=== PATIENT | female | born 1975 | race Two or more races ===

== ENCOUNTER 2020-02-11 10:28 | Outpatient (REF) | payer OTHER, BC, SELFPAY | END 2020-02-11 10:29 | disposition home or self-care (01) | LOC: HO.LAB 10:28 | PROVIDERS: PCP Internal Medicine; Visit Provider Internal Medicine | DX: Z20.828 Contact with and (suspected) exposure to other viral communicable diseases (principal) | CPT/HCPCS: C9803; U0003 ==

== ENCOUNTER 2020-05-19 10:13 | Outpatient (REF) | payer OTHER, SELFPAY | END 2020-05-19 10:14 | disposition home or self-care (01) | LOC: HO.LAB 10:13 | PROVIDERS: Visit Provider Internal Medicine | DX: Z20.822 Contact with and (suspected) exposure to COVID-19 (principal) | CPT/HCPCS: 36415; C9803; U0003; U0005 ==

== ENCOUNTER 2020-06-28 09:24 | Outpatient (REF) | payer OTHER, SELFPAY ==
[2020-06-28 10:03] LABS: COVID-19 Test Negative (Negative); IDNOW Serial# 55D5AD1C
== END 2020-06-28 09:25 | disposition home or self-care (01) ==
LOC: HO.LAB 09:24
PROVIDERS: Visit Provider Internal Medicine
DX: Z20.822 Contact with and (suspected) exposure to COVID-19 (principal)
CPT/HCPCS: 36415; 87635; C9803

== ENCOUNTER 2020-07-01 11:48 | Outpatient (REF) | payer OTHER, SELFPAY ==
[2020-07-01 14:14] LABS: MANUAL DIFF FLAG NO
[2020-07-01 14:25] LABS: Basophils Percent Auto 0.3 % (0-2); Eosinophils Absolute Auto 0.3 X10*3/uL (0.0-0.4); Eosinophils Percent Auto 2.6 % (0-4); Hematocrit 37.2 % (37-47); Hemoglobin 11.8 g/dl (12.0-16.0); Imm Gran Abs Auto 0.03 X10*3/uL (0.00-0.03); Imm Gran Pct Auto 0.3 % (0.0-0.4); Lymphocytes Absolute Auto 2.6 X10*3/uL (1.2-4.9); Lymphocytes Percent Auto 26.4 % (20-40); Mean Corpuscular HGB Conc 31.7 g/dl (31.0-35.0); Mean Corpuscular Hemoglobin 28.4 pg (27.0-33.0); Mean Corpuscular Volume 89.4 fL (80-98); Mean Platelet Volume 11.3 fL (9.4-12.3); Monocytes Absolute Auto 0.5 X10*3/uL (0.1-1.2); Monocytes Percent Auto 4.6 % (2-11); Neutrophils Absolute Auto 6.5 X10*3/uL (2.0-8.3); Neutrophils Percent Auto 65.8 % (45-73); Platelet Count 279 X10*3/uL (160-400); Red Blood Count 4.16 X10*6/uL (4.20-5.50); Red Cell Distribution Width 12.9 % (11.0-16.0); White Blood Count 9.8 X10*3/uL (4.8-10.8)
[2020-07-01 14:42] LABS: Alanine Aminotransferase 9 U/L (0-31); Albumin Level 3.9 g/dL (3.5-5.0); Alkaline Phosphatase 68 U/L (39-117); Anion Gap 14 (12-20); Aspartate Amino Transferase 12 U/L (5-31); Bilirubin Total 0.4 mg/dL (0.0-1.0); Blood Urea Nitrogen 9 mg/dL (9-16); Calcium 9.3 mg/dL (8.4-10.2); Carbon Dioxide 24 mmol/L (22-29); Chloride 106 mmol/L (96-108); Estimated Glomerular Filt Rate > 60; Glucose Random 97 mg/dL (60-115); Potassium 4.4 mmol/L (3.3-5.1); Sodium 140 mmol/L (135-145); Total Protein 7.1 g/dL (6.5-8.0)
[2020-07-01 14:54] LABS: Thyroid Stimulating Hormone 1.51 uIU/mL (0.32-4.0)
[2020-07-01 15:04] LABS: Vitamin B12 380 pg/mL (200-900)
== END 2020-07-01 11:49 | disposition home or self-care (01) ==
LOC: HO.10HDL 11:48
PROVIDERS: Visit Provider Internal Medicine
DX: J45.909 Unspecified asthma, uncomplicated (principal); Z83.3 Family history of diabetes mellitus; M79.18 Myalgia, other site
CPT/HCPCS: 36415; 80053; 82607; 84443; 85025

== ENCOUNTER 2020-08-23 15:41 | Outpatient (REF) | payer OTHER, SELFPAY ==
--- NOTE | ~2020-08-23 | XR_ITS ---
EXAMINATION: XR ANKLE, RIGHT CLINICAL INFORMATION: Right ankle pain COMPARISON: None TECHNIQUE: AP, lateral, and mortise views of the right ankle. FINDINGS: Large heel spur and a large posterior calcaneal enthesophyte at the Achilles tendon insertion. The ankle mortise is preserved. No fracture. XR/XR ankle RT min 3V IMPRESSION: Large posterior calcaneal enthesophyte and heel spur.
== END 2020-08-23 15:42 | disposition home or self-care (01) ==
LOC: HO.XRAY 15:41
PROVIDERS: PCP Internal Medicine; Visit Provider Internal Medicine
DX: S99.911A Unspecified injury of right ankle, initial encounter (principal)
CPT/HCPCS: 73610

== ENCOUNTER 2020-09-15 00:27 | Emergency (ER) | payer OTHER, MEDICAID, SELFPAY ==
[2020-09-15 01:03] VITALS: BP 114/75; PULSE 74; RESP 18; TEMP 36.4; O2SAT 97; BMI 41.1
--- NOTE | 2020-09-15 04:30 | ED.SKABFB ---
HPI - Skin/Abscess/Foreign Bdy General Chief complaint: Skin/Abscess/Foreign Body Stated complaint: Facial pain Time Seen by Provider: 09/15/20 01:42 Source: patient Mode of arrival: ambulatory History of Present Illness HPI narrative: 44-year-old female with 5 days of worsening left nare abscess that is extremely painful to the patient, however she denies any visual disturbance, fevers, chills and states that she has had this before several years ago. Related Data Previous Rx's Medication Instructions Recorded etonogestrel 0.12 mg-ethinyl 1 vag ring VAGINAL ONCE 21 Days #1 09/01/20 estradiol 0.015 mg/24 hr vaginal ring ring Allergies Allergy/AdvReac Type Severity Reaction Status Date / Time Penicillins Allergy Intermediate SWELLING Unverified 11/13/19 15:56 penicillin V Allergy Unknown Unverified 10/27/19 00:00 Review of Systems Review of Systems: Pertinent positives and negatives as stated in HPI 10 point review of systems is otherwise negative. PMFSH Past Medical History Source: nursing notes reviewed Social History Social History Advance Directives: No Advance Directives Information Provided: No Patient : No Physical Exam Vital Signs: Vital Signs: Last Vital Signs Temp 97.6 F 09/15/20 01:03 Pulse 74 09/15/20 01:03 Resp 18 09/15/20 01:03 BP 114/75 09/15/20 01:03 Pulse Ox 97 09/15/20 01:03 Body Mass Index 41.1 VITAL SIGNS: Reviewed. GENERAL: Well developed, well nourished, in no acute distress. HEAD: Normocephalic/atraumatic EYES: PERRLA, EOMI EARS: Ext canals without abnormality, TMs non-bulging and non-erythematous NOSE: Nares patent bilateral, noted abscess to left nare OROPHARYNX: no oral lesions noted, posterior pharynx clear LUNGS: Normal breath sounds. No adventitious sounds or accessory muscle use. SpO2<97> CARDIOVASCULAR: Regular rate and rhythm without noted murmurs ABDOMEN: Soft, non-tender, non-distended with bowel sounds. SKIN: Inspection of the skin reveals no rashes NEUROLOGIC: Alert and oriented x 4. Strength and sensation to light touch were grossly intact x 4. Course Course Course Narrative: 44-year-old female with noted left nare abscess that was successfully drained and will be discharged with instructions to continue with warm moist compresses and follow up with their primary care provider. Procedures Abscess I/D Site: face (Left nare) Side (if applicable): left Sedation/analgesia: none Technique: needle aspiration Amount of fluid expressed (mL): 1 Sent for culture/gram staining?: No Irrigation: No Packing used?: none Complications: pain Discharge Plan Discharge Clinical Impression: Abscess Patient Disposition: Home, Self-Care Instructions: Abscess Incision and Drainage (DC) Additional Instructions: 1. Continue with warm moist intranasal compresses as we discussed, also apply to the outside of your nose as well and apply pressure to encourage continued drainage from your nose. Is not felt that she require antibiotics at this time. 2. Please follow-up with your primary care provider for re-evaluation. Return to the ER for any acute worsening of your symptoms. Prescriptions: No Action etonogestrel-ethinyl estradiol 0.12-0.015 mg/24 hr ring 1 vag ring vaginal ONCE 21 Days Qty: 1 RF: 0 Referrals: Arturo De La Rosa MD [Primary Care Provider] - 2 days (Re-evaluation after left nare abscess)
== END 2020-09-15 04:44 | disposition home or self-care (01) ==
PROVIDERS: Emergency Provider Student in an Organized Health Care Education/Training Program; PCP Internal Medicine
DX: J34.0 Abscess, furuncle and carbuncle of nose (principal)
CPT/HCPCS: 10160; 99282; 99284

== ENCOUNTER 2020-11-30 11:25 | Outpatient (REF) | payer OTHER, MEDICAID, SELFPAY ==
--- NOTE | ~2020-11-30 | MM_ITS ---
EXAMINATION: MM SCREENING DIGITAL BREAST TOMOSYNTHESIS, BILATERAL CLINICAL INFORMATION: Screening. Asymptomatic. The lifetime risk of breast cancer based on the Tyrer-Cuzick Model is 9%. COMPARISON: Mammography: 09/25/2019, 07/07/2016, 06/30/2016 TECHNIQUE: Digital breast tomosynthesis is performed in both the craniocaudal and mediolateral oblique views along with computer-aided detection (CAD). Synthesized 2D images are generated from the tomosynthesis. Additional right CC view is provided. FINDINGS: The breasts are almost entirely fatty (ACR BI-RADS breast composition Category a). Background stromal markings are unremarkable. There are no significant masses, abnormal calcifications, or other abnormalities. Skin contours are smooth. No significant changes. MM/MM tomosynthesis screening BI IMPRESSION: No mammographic evidence of malignancy. ASSESSMENT: BI-RADS 1: Negative RECOMMENDATION: Routine annual mammography screening. This patient's information was entered into a reminder system with a target due date for their next mammogram.
[2020-11-30 10:28] LABS: Hematocrit 37.2 % (37-47); Hemoglobin 12.2 g/dl (12.0-16.0); Mean Corpuscular HGB Conc 32.8 g/dl (31.0-35.0); Mean Corpuscular Hemoglobin 28.6 pg (27.0-33.0); Mean Corpuscular Volume 87.3 fL (80-98); Platelet Count 268 X10*3/uL (160-400); Red Blood Count 4.26 X10*6/uL (4.20-5.50); Red Cell Distribution Width 13.2 % (11.0-16.0); White Blood Count 11.5 X10*3/uL (4.8-10.8)
[2020-11-30 11:13] LABS: HCG Quantitative < 2 mIU/mL; TSH reflex Free T4 3.65 uIU/mL (0.32-4.0)
[2020-11-30 11:20] LABS: HBsAGNum1 0.13 S/CO (0.00-0.99); HIV AB/AG Nonreactive (Nonreactive); HIV Num 1 0.08 S/CO (0.00-0.99); Hepatitis B Surface Antigen Negative (Negative); ~HepC Num1 0.07 S/CO (0.00-0.79); ~Hepatitis C Antibody Nonreactive (Nonreactive)
[2020-12-01 08:05] LABS: Syphilis Screen Nonreactive (Nonreactive)
== END 2020-11-30 11:26 | disposition home or self-care (01) ==
LOC: HO.MAMMO 11:25
PROVIDERS: PCP Internal Medicine; Visit Provider Obstetrics & Gynecology
DX: Z01.411 Encounter for gynecological examination (general) (routine) with abnormal findings (principal); Z12.31 Encounter for screening mammogram for malignant neoplasm of breast; Z11.3 Encounter for screening for infections with a predominantly sexual mode of transmission; N93.9 Abnormal uterine and vaginal bleeding, unspecified; Z87.42 Personal history of other diseases of the female genital tract
CPT/HCPCS: 36415; 77063; 77067; 84443; 84702; 85027; 86780; 86803; 87340; 87389

== ENCOUNTER 2020-11-30 11:36 | Outpatient (REF) | payer OTHER, SELFPAY ==
[2020-12-01 09:22] LABS: CT PCR NOT DETECTED (Not Detect.); NG PCR NOT DETECTED (Not Detect.)
[2020-12-01 09:54] LABS: BV Int Neg Control Negative (Negative); BV Int Pos Control Positive (Positive)
[2020-12-04 10:57] LABS: HPV 16 RNA NOT DETECTED (NOT DETECTED); HPV mRNA E6/E7 rflx Detected (Not Detected)
== END 2020-11-30 11:37 | disposition home or self-care (01) ==
LOC: HO.LAB 11:36
PROVIDERS: Visit Provider Obstetrics & Gynecology
DX: N93.9 Abnormal uterine and vaginal bleeding, unspecified (principal); Z11.3 Encounter for screening for infections with a predominantly sexual mode of transmission; Z11.51 Encounter for screening for human papillomavirus (HPV)
CPT/HCPCS: 87480; 87491; 87510; 87591; 87624; 87625; 87660; 88142

== ENCOUNTER 2020-12-28 11:08 | Outpatient (REF) | payer OTHER, SELFPAY ==
--- NOTE | ~2020-12-28 | US_ITS ---
EXAMINATION: US PELVIS CLINICAL INFORMATION: Abnormal uterine and vaginal bleeding. Last menstrual period 1 year ago. COMPARISON: No similar priors. TECHNIQUE: Ultrasound of the pelvis is performed using both transabdominal and transvaginal transducers along with Doppler. Transvaginal imaging is performed due to inadequate visualization transabdominally. FINDINGS: Uterus: The uterus is anteverted and measures 8.7 x 4.2 x 4.0 cm. The endometrium measures 0.4 cm in thickness without focal abnormalities. The uterus is smooth in contour and has normal myometrial echogenicity. No visible fibroid. Adnexa: The right ovary is only visualized transabdominally. There is normal color flow to the adnexa. There is no pelvic ascites or fluid collection. Right ovary measures 2.7 x 1.7 x 2.2 cm. Volume of 5 mL. Left ovary measures 2.6 x 1.4 x 1.7 cm. Volume of 3 mL. US/US pelvic and transvaginal IMPRESSION: Mildly limited examination due poor acoustic windows from bowel gas and body habitus. The right ovary was only visualized transabdominally. Accounting for these limitations, there are no acute sonographic abnormalities to explain the patient's symptoms. In a postmenopausal patient with vaginal bleeding, the endometrium should not measure more than 5 mm. The endometrium is this patient measures 4 mm. If clinical concern for endometrial hyperplasia/neoplasia, consider further evaluation with direct examination and gynecologic consultation.
== END 2020-12-28 11:09 | disposition home or self-care (01) ==
LOC: HO.US 11:08
PROVIDERS: Visit Provider Obstetrics & Gynecology
DX: N93.9 Abnormal uterine and vaginal bleeding, unspecified (principal)
CPT/HCPCS: 76830; 76856

== ENCOUNTER 2021-01-11 11:00 | Outpatient (REF) | payer OTHER, MEDICAID, SELFPAY | END 2021-01-11 11:01 | disposition home or self-care (01) | LOC: HO.LAB 11:00 | PROVIDERS: Visit Provider Obstetrics & Gynecology | DX: N93.9 Abnormal uterine and vaginal bleeding, unspecified (principal); R87.612 Low grade squamous intraepithelial lesion on cytologic smear of cervix (LGSIL) | CPT/HCPCS: 58110; 57454; 58100; 88305 ==

== ENCOUNTER → 2021-01-31 08:25 | Outpatient (BNVA) | payer OTHER, SELFPAY | PROVIDERS: PCP Internal Medicine; Visit Provider Obstetrics & Gynecology ==

== ENCOUNTER 2021-02-25 10:12 | Outpatient (REF) | payer OTHER, SELFPAY ==
[2021-02-25 11:20] LABS: Binax Internal Control QC Valid; Binax Lot number: 9864; Binax Now Covid-19 Ag Negative (Negative)
== END 2021-02-25 10:13 | disposition home or self-care (01) ==
LOC: HO.LAB 10:12
PROVIDERS: Visit Provider Internal Medicine
DX: Z20.822 Contact with and (suspected) exposure to COVID-19 (principal)
CPT/HCPCS: 36415; C9803

== ENCOUNTER → 2021-03-30 10:30 | Outpatient (BNVA) | payer OTHER, SELFPAY | PROVIDERS: Visit Provider Obstetrics & Gynecology ==

== ENCOUNTER 2021-04-01 09:38 | Day surgery (SDC) | payer OTHER, SELFPAY ==
[2021-02-22 14:00] VITALS: BMI 44.0
--- NOTE | 2021-03-03 12:12 | HO.ANESPROP2 ---
HPI - Anesthesia Eval Consult details Narrative: 45yo F for [facility] LEEP PMFSH Active Problems Active Problems: All Active Problems (Updated 02/22/21 @ 14:03 by Eliana Chavira, RN) Well woman exam (Acute) Abnormal uterine bleeding (AUB) (Acute) Screening for STD (sexually transmitted disease) (Acute) Contraceptive management (Acute) LGSIL on Pap smear of cervix (Acute) Dysplasia of cervix, low grade (MULU 1) (Acute) Past Medical History Medical History (Updated 02/22/21 @ 14:03 by Eliana Chavira, RITA) COVID-19 vaccine series completed Dysplasia of cervix, low grade (MULU 1) Family History Family History Maternal Grandmother Uterine cancer Surgical History Surgical History (Updated 02/22/21 @ 13:59 by Eliana Chavira RN) Hx of cholecystectomy Social History Social History Patient Tobacco Use Status: Never used Tobacco Meds Allergies Allergy/AdvReac Type Severity Reaction Status Date / Time Penicillins Allergy Intermediate SWELLING Verified 02/22/21 13:49 Exam Exam Date and Time: March 03, 2021 1212 Height,Weight and Vital Signs: Height 5 ft 5 in Weight 120 kg Assessment and Plan Assessment Anesthesia Assessment: Chart Reviewed
--- NOTE | 2021-03-31 10:18 | HO.ANESPROP2 ---
Documented by User: Cynthia Grossman NP 03/31/21 10:19 HPI - Anesthesia Eval Consult details Narrative: 45yo F for [facility] LEEP PMFSH Active Problems Active Problems: All Active Problems (Updated 02/22/21 @ 14:03 by Eliana Chavira, RITA) Well woman exam (Acute) Abnormal uterine bleeding (AUB) (Acute) Screening for STD (sexually transmitted disease) (Acute) Contraceptive management (Acute) LGSIL on Pap smear of cervix (Acute) Dysplasia of cervix, low grade (MULU 1) (Acute) Past Medical History Medical History COVID-19 vaccine series completed Dysplasia of cervix, low grade (MULU 1) Family History Family History Maternal Grandmother Uterine cancer Surgical History Surgical History Hx of cholecystectomy Social History Social History Patient Tobacco Use Status: Never used Tobacco Use of substances other than those prescribed or required for medical reasons: No Are you DNR?: No Advance Directives: No Advance Directives Information Provided: Yes (informational brochure mailed) Advance Directives on File: No Recently lost weight without trying: No Eating poorly because of decreased appetite: No Nutrition Risks: No Nutritional Risk Patient : No FDLMP: N/A Meds Allergies Allergy/AdvReac Type Severity Reaction Status Date / Time Penicillins Allergy Intermediate SWELLING Verified 03/25/21 15:10 Exam Exam Date and Time: March 31, 2021 1018 Height,Weight and Vital Signs: Height 5 ft 5 in Weight 120 kg Pertinent Lab Results Pertinent Lab Results: Laboratory Tests 07/01/20 11/30/20 11:55 09:48 WBC 11.5 H Hgb 12.2 Hct 37.2 Plt Count 268 Sodium 140 Potassium 4.4 Chloride 106 Carbon Dioxide 24 BUN 9 Creatinine 0.72 Assessment and Plan Assessment Anesthesia Assessment: Chart Reviewed Documented by User: Fortunato Chakraborty MD 04/01/21 10:02 PMF Past Medical History Medical History COVID-19 vaccine series completed Dysplasia of cervix, low grade (MULU 1) Family History Family History Maternal Grandmother Uterine cancer Family history of problems with anesthesia: No Surgical History Surgical History Hx of cholecystectomy History of Problems with Anesthesia: No Social History Social History Patient Tobacco Use Status: Never used Tobacco Use of substances other than those prescribed or required for medical reasons: No Are you DNR?: No Advance Directives: No Advance Directives Information Provided: Yes (informational brochure mailed) Advance Directives on File: No Recently lost weight without trying: No Eating poorly because of decreased appetite: No Nutrition Risks: No Nutritional Risk Patient : No FDLMP: N/A Meds Allergies Allergy/AdvReac Type Severity Reaction Status Date / Time Penicillins Allergy Intermediate SWELLING Verified 03/25/21 15:10 Exam Airway Mallampati Class: II TM Dist: >3cm Neck ROM: Full Assessment and Plan Assessment Anesthesia Assessment: Anesthesia Plan Discussed Final Anesthetic Review Family History of Problems with Anesthesia: No History of Problems with Anesthesia: No NPO: Yes ASA Class: II Final Preanesthetic Review: No Changes in Pt Med Stat, Meds/Allgs Chart Reviewed, Consent Obtained/Reviewed and Anes Risks/Benef Reviewed Patient Risk: Intermediate Procedure Risk: Low Anesthetic Plan Anesthetic Plan: GA Disposition: Standard PACU
[2021-04-01] VITALS (7 sets, daily range): BP systolic 110–149; BP diastolic 67–97; PULSE 63–91; RESP 16–20; TEMP 36.2–36.4; O2SAT 94–99
[2021-04-01 10:07] LABS: UPreg QC Valid YES; Urine Pregnancy NEGATIVE (NEGATIVE)
--- NOTE | 2021-04-01 10:16 | MHC.SHP ---
Pre-Procedural Eval Section A Date of Service: 04/01/21 The patient is an INPATIENT: No Changes since office visit: No Cold of Flu in the past 2 weeks, No New Medical Problems, No Changes in Medication and No Patient answered all questions The History & Physical has been completed within 30 days and I have reviewed it.: Yes Section B Chief Complaint: cervical dyslasia Allergies: Allergies Allergy/AdvReac Type Severity Reaction Status Date / Time Penicillins Allergy Intermediate SWELLING Verified 03/25/21 15:10 Plan Diagnosis/Plan: Unchanged I have reviewed the history and physical and performed a pertinent physical examination on my patient. No changes have occurred unless specified.
[2021-04-01] MEDS: Lactated Ringers 1,000 ML 100 ML IVCONT (10:18)
--- NOTE | 2021-04-01 11:50 | PM.OP ---
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
--- NOTE | 2021-04-01 11:51 | W.PM.OPN ---
Operative Note Operative Note Date of Service: 04/01/21 Narrative: Preop diagnosis: Persistent MULU 1 with negative ECC Operation: LEEP Post op diagnosis: same Anesthesia: paracervical block with MAC Complications: none Pathology: Anterior and Posterior cervical lip QBL: minimal Procedure: The patient was put in the dorsal lithotomy position, was prepped and draped in the usual sterile fashion. A sterile speculum was inserted inside the patient vagina. Using Lugol solution the cervix with Dyed with Lugol solution to identifiy the abnormal demarcating line. 10 cc of Marcaine0.5% with epinephrine were given at 2,4 , 8, and 10 o'clock. Using a medium-size loop wire, the anterior cervical lip was excised followed by the posterior cervical lip and endocervix Hemostasis was assured using cautery and Monsel solution. All instruments were taken out of the patient's vaginal cavity. the patient tolerated the procedure well and was discharged home with the following instructions: call if temperature is above 100.4, vaginal bleeding, abdominal pain or nausea or vomiting. Follow-up in the office in 2 weeks for postop visit
== END 2021-04-01 13:00 ==
LOC: HO.SSS 09:38
PROVIDERS: Nurse Practitioner; Visit Provider Obstetrics & Gynecology
PROC: 0UBC7ZZ Excision of Cervix, Via Natural or Artificial Opening (ICD-10-PCS; CPT 57522; principal; 2021-04-01 11:20)
DX: N87.0 Mild cervical dysplasia (principal); Z90.49 Acquired absence of other specified parts of digestive tract; Z88.8 Allergy status to other drugs, medicaments and biological substances
CPT/HCPCS: 57522; 81025; 88307; J1100; J2250; J2405; J3010

== ENCOUNTER → 2021-05-03 11:47 | Outpatient (BNVA) | payer OTHER, SELFPAY | PROVIDERS: Visit Provider Obstetrics & Gynecology ==

== ENCOUNTER 2021-05-25 10:42 | Outpatient (REF) | payer OTHER, SELFPAY ==
[2021-05-25 11:27] LABS: Influenza A PCR NEGATIVE (Negative); Influenza B PCR NEGATIVE (Negative); Resp Syncy Virus RNA Qual PCR NEGATIVE (Negative); SARS COV2 PCR INHOUSE NEGATIVE (Negative)
== END 2021-05-25 10:43 | disposition home or self-care (01) ==
LOC: HO.LNP 10:42
PROVIDERS: Visit Provider Internal Medicine
DX: Z20.822 Contact with and (suspected) exposure to COVID-19 (principal); R05.9 Cough, unspecified
CPT/HCPCS: 0241U

== ENCOUNTER 2021-09-21 14:48 | Outpatient (REF) | payer OTHER, SELFPAY ==
[2021-09-21 16:18] LABS: COVID-19 Test Negative (Negative)
== END 2021-09-21 14:49 | disposition home or self-care (01) ==
LOC: HO.LAB 14:48
PROVIDERS: Visit Provider Internal Medicine
DX: Z20.822 Contact with and (suspected) exposure to COVID-19 (principal)
CPT/HCPCS: 87635; C9803

== ENCOUNTER 2021-09-26 14:10 | Outpatient (REF) | payer OTHER, SELFPAY ==
[2021-09-26 14:58] LABS: COVID-19 Test Negative (Negative); IDNOW Serial# 16C4AD1C
== END 2021-09-26 14:11 | disposition home or self-care (01) ==
LOC: HO.LAB 14:10
PROVIDERS: Visit Provider Internal Medicine
DX: Z20.822 Contact with and (suspected) exposure to COVID-19 (principal)
CPT/HCPCS: 87635; C9803

== ENCOUNTER 2021-11-25 13:27 | Outpatient (REF) | payer OTHER, SELFPAY ==
[2021-11-25 13:52] LABS: MANUAL DIFF FLAG NO
[2021-11-25 14:37] LABS: Basophils Percent Auto 0.3 % (0-2); Eosinophils Absolute Auto 0.2 X10*3/uL (0.0-0.4); Eosinophils Percent Auto 1.3 % (0-4); Hematocrit 38.9 % (37.0-47.0); Hemoglobin 12.5 g/dl (12.0-16.0); Imm Gran Abs Auto 0.06 X10*3/uL (0.00-0.03); Imm Gran Pct Auto 0.5 % (0.0-0.4); Lymphocytes Absolute Auto 2.6 X10*3/uL (1.2-4.9); Lymphocytes Percent Auto 21.4 % (20-40); Mean Corpuscular HGB Conc 32.1 g/dl (31.0-35.0); Mean Corpuscular Hemoglobin 28.5 pg (27.0-33.0); Mean Corpuscular Volume 88.6 fL (80.0-98.0); Mean Platelet Volume 11.1 fL (9.4-12.3); Monocytes Absolute Auto 0.6 X10*3/uL (0.1-1.2); Monocytes Percent Auto 4.6 % (2-11); Neutrophils Absolute Auto 8.6 x10*3/uL (2.0-8.3); Neutrophils Percent Auto 71.9 % (45-73); Platelet Count 297 X10*3/uL (160-400); Red Blood Count 4.39 X10*6/uL (4.20-5.50); Red Cell Distribution Width 13.3 % (11.0-16.0); White Blood Count 11.9 X10*3/uL (4.8-10.8)
[2021-11-25 14:46] LABS: Estimated Average Glucose 114 mg/dL; Hemoglobin A1c % 5.6 %
[2021-11-25 15:09] LABS: Alanine Aminotransferase 11 U/L (0-31); Albumin Level 4.1 g/dL (3.5-5.0); Alkaline Phosphatase 75 U/L (39-117); Anion Gap 14 (12-20); Aspartate Amino Transferase 15 U/L (5-31); Bilirubin Total 0.3 mg/dL (0.0-1.0); Blood Urea Nitrogen 9 mg/dL (9-16); Calcium 9.2 mg/dL (8.4-10.2); Carbon Dioxide 22 mmol/L (22-29); Chloride 107 mmol/L (96-108); Cholesterol 183 mg/dL; Estimated Glomerular Filt Rate > 60; Glucose Fasting 98 mg/dL (60-99); HDL Cholesterol 58 mg/dL; LDL Cholesterol Calculated 106 mg/dl; Potassium 4.5 mmol/L (3.3-5.1); Sodium 138 mmol/L (135-145); Total Protein 7.5 g/dL (6.5-8.0); Triglycerides 97 mg/dL
[2021-11-25 15:30] LABS: Free T4 (Free Thyroxine) 1.11 ng/dL (0.71-1.85); Thyroid Stimulating Hormone 1.51 uIU/mL (0.32-4.0)
== END 2021-11-25 13:28 | disposition home or self-care (01) ==
LOC: HO.LAB 13:27
PROVIDERS: PCP Internal Medicine; Visit Provider Internal Medicine
DX: Z00.00 Encounter for general adult medical examination without abnormal findings (principal)
CPT/HCPCS: 36415; 80053; 80061; 83036; 84439; 84443; 85025

== ENCOUNTER 2021-12-01 12:56 | Outpatient (REF) | payer OTHER, SELFPAY ==
--- NOTE | ~2021-12-01 | MM_ITS ---
EXAMINATION: MM SCREENING DIGITAL BREAST TOMOSYNTHESIS, BILATERAL CLINICAL INFORMATION: Screening. Asymptomatic. The lifetime risk of breast cancer based on the Tyrer-Cuzick Model is 9%. COMPARISON: Mammography: 11/30/2020, 09/25/2019, 07/07/2016 TECHNIQUE: Digital breast tomosynthesis is performed in both the craniocaudal and mediolateral oblique views along with computer-aided detection (CAD). Synthesized 2D images are generated from the tomosynthesis. FINDINGS: The breasts are almost entirely fatty (ACR BI-RADS breast composition Category a). There are no significant masses, abnormal calcifications, or other abnormalities. Background stromal markings are similar to prior studies. No developing density or architectural abnormality. No significant changes. MM/MM tomosynthesis screening BI IMPRESSION: No mammographic evidence of malignancy. ASSESSMENT: BI-RADS 1: Negative RECOMMENDATION: Routine annual mammography screening. This patient's information was entered into a reminder system with a target due date for their next mammogram.
== END 2021-12-01 12:57 | disposition home or self-care (01) ==
LOC: HO.MAMMO 12:56
PROVIDERS: Visit Provider Internal Medicine
DX: Z12.31 Encounter for screening mammogram for malignant neoplasm of breast (principal)
CPT/HCPCS: 77063; 77067

== ENCOUNTER 2021-12-07 10:13 | Outpatient (REF) | payer OTHER, SELFPAY ==
[2021-12-13 11:42] LABS: HPV mRNA E6/E7 rflx Not Detected (Not Detected)
== END 2021-12-07 10:14 | disposition home or self-care (01) ==
LOC: HO.LNP 10:13
PROVIDERS: Visit Provider Obstetrics & Gynecology
DX: Z01.419 Encounter for gynecological examination (general) (routine) without abnormal findings (principal); Z11.51 Encounter for screening for human papillomavirus (HPV)
CPT/HCPCS: 87624; 88142

== ENCOUNTER 2021-12-07 10:22 | Outpatient (REF) | payer OTHER, SELFPAY ==
[2021-12-07 11:57] LABS: Syphilis Screen Nonreactive (Nonreactive)
[2021-12-07 12:07] LABS: HBsAGNum1 0.19 S/CO (0.00-0.99); HIV AB/AG Nonreactive (Nonreactive); HIV Num 1 0.06 S/CO (0.00-0.99); Hepatitis B Surface Antigen Negative (Negative); ~HepC Num1 0.08 S/CO (0.00-0.79); ~Hepatitis C Antibody Nonreactive (Nonreactive)
[2021-12-07 19:08] LABS: CT PCR NOT DETECTED (Not Detect.); NG PCR NOT DETECTED (Not Detect.)
[2021-12-08 10:09] LABS: BV Int Neg Control Negative (Negative); BV Int Pos Control Positive (Positive)
== END 2021-12-07 10:23 | disposition home or self-care (01) ==
LOC: HO.LAB 10:22
PROVIDERS: PCP Internal Medicine; Visit Provider Obstetrics & Gynecology
DX: Z01.419 Encounter for gynecological examination (general) (routine) without abnormal findings (principal); Z11.4 Encounter for screening for human immunodeficiency virus [HIV]; Z11.3 Encounter for screening for infections with a predominantly sexual mode of transmission
CPT/HCPCS: 36415; 86780; 86803; 87340; 87389; 87480; 87491; 87510; 87591; 87660

== ENCOUNTER → 2022-07-04 07:45 | Outpatient (REF) | payer OTHER, SELFPAY ==
--- NOTE | 2022-07-04 07:49 | CA_ITS ---
Acquisition Time: 2022-07-04 08:01:37 Total Exercise Time: 00:05:01 Test Indications: CP Medications: SEE H Protocol: CLAUDE Max HR: 166 BPM 95% of Pred: 173 BPM Max BP: 148/082 mmHG Max Work Load: 7.0 METS PT EXERCISED ON STD CLAUDE PROTOCOL FOR 5 MIN INTO STAGE 2. MAX HR 166-95%MAX. NO EKG MCHANGES. LIMITING FACTOR WAS SOB. NO CP, NO ARRHYTHMIAS. DECONDITIONED. CLINICALLY AND ELEC NEG. Referred By: Arturo Granda Overread By: SCARLET GRANDA MD
[2022-07-04 09:05] LABS: MANUAL DIFF FLAG NO
[2022-07-04 09:28] LABS: Basophils Percent Auto 0.3 % (0-2); Eosinophils Absolute Auto 0.3 X10*3/uL (0.0-0.4); Eosinophils Percent Auto 2.4 % (0-4); Hematocrit 37.6 % (37.0-47.0); Imm Gran Abs Auto 0.05 X10*3/uL (0.00-0.03); Imm Gran Pct Auto 0.5 % (0.0-0.4); Lymphocytes Absolute Auto 3.6 X10*3/uL (1.2-4.9); Lymphocytes Percent Auto 32.1 % (20-40); Mean Corpuscular HGB Conc 31.9 g/dl (31.0-35.0); Mean Corpuscular Volume 87.6 fL (80.0-98.0); Mean Platelet Volume 10.6 fL (9.4-12.3); Monocytes Absolute Auto 0.6 X10*3/uL (0.1-1.2); Monocytes Percent Auto 5.5 % (2-11); Neutrophils Absolute Auto 6.6 x10*3/uL (2.0-8.3); Neutrophils Percent Auto 59.2 % (45-73); Platelet Count 313 X10*3/uL (160-400); Red Blood Count 4.29 X10*6/uL (4.20-5.50); Red Cell Distribution Width 13.2 % (11.0-16.0); White Blood Count 11.1 X10*3/uL (4.8-10.8)
[2022-07-04 09:34] LABS: D Dimer High Sensitivity 150 NG/ML
[2022-07-04 10:59] LABS: Estimated Average Glucose 120 mg/dL; Hemoglobin A1c % 5.8 %
[2022-07-04 11:51] LABS: Troponin-I High Sensitivity < 2.7 ng/L (<3.5-17.0)
[2022-07-04 12:37] LABS: Alanine Aminotransferase 9 U/L (0-31); Albumin Level 3.8 g/dL (3.5-5.0); Alkaline Phosphatase 70 U/L (39-117); Anion Gap 13 (12-20); Aspartate Amino Transferase 10 U/L (5-31); Bilirubin Total 0.2 mg/dL (0.0-1.0); Blood Urea Nitrogen 10 mg/dL (9-16); C Reactive Protein 4.16 mg/dL (< or = 0.50); Calcium 9.2 mg/dL (8.4-10.2); Carbon Dioxide 20 mmol/L (22-29); Chloride 113 mmol/L (96-108); Estimated Glomerular Filt Rate > 60; Glucose Random 109 mg/dL (60-115); Potassium 4.1 mmol/L (3.3-5.1); Sodium 142 mmol/L (135-145)
== END ==
LOC: HO.CARD 07:45
PROVIDERS: PCP Internal Medicine; Visit Provider Internal Medicine
DX: R07.9 Chest pain, unspecified (principal); R73.03 Prediabetes
CPT/HCPCS: 36415; 80053; 82550; 83036; 84443; 84484; 85025; 85379; 86140; 93017

== ENCOUNTER 2022-12-12 09:48 | Outpatient (AMB) | payer OTHER, SELFPAY ==
--- NOTE | 2022-12-12 09:51 | MHC.OFFVIS ---
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 No complaints. Last Pap/HPV was in 12/17 was negative, the patient had in 12/16 for persistent MULU 1 Last Mammogram was BI-RADS 1 in 12/17 No previous screening Colonoscopy [facility] Medical History COVID-19 vaccine series completed Dysplasia of cervix, low grade (MULU 1) Surgical History Hx of cholecystectomy Family History Maternal Grandmother Uterine cancer Social History Household Members: Spouse Housing: Apartment Alcohol intake: never Patient Tobacco Use Status: Never used Tobacco service: No Current occupational status: employed Current occupation: [employer] Sexual orientation: Straight/Heterosexual Gender identity: Female Female Reproductive History Menstrual Age of Menarche: 12 Duration of menses: <3 days Date of last menstrual period: 12/04/22 control method: vaginal ring Total pregnancies: 3 Full term: 2 Number of Living Children: 2 Ab spontaneous: 1 Date of last pap smear: 12/08/21 Date of Mammogram: 12/01/21 Review of Systems Const All systems reviewed & are unremarkable except as noted in HPI and below Card Reports as per HPI Resp Reports as per HPI GI Reports as per HPI and Reports no additional complaints Reports as per HPI Physical Exam Vital Signs: BMI result Body Mass Index 40.0 Const General: cooperative, healthy appearing and comfortable Chest Chest palpation & inspection: normal inspection of the chest and normal palpation of entire chest wall Breast/axilla inspection: normal inspection of the breasts and normal inspection of the axillae Breast/axilla palpation: normal palpation of the breasts, normal palpation of the axillae and no axillary lymphadenopathy Resp Effort & Inspection: normal respiratory effort Auscultation: clear to auscultation bilaterally Percussion: percussion normal Cardio Palpation: normal PMI Rate: regular rate Rhythm: regular rhythm Heart sounds: no murmurs and no rubs Peripheral pulses: Peripheral pulses 2+ throughout GI Inspection: Yes normal to inspection Palpation (GI): Soft to palpation, nontender, no guarding, not rigid and No hepatosplenomegaly present Percussion: Yes normal to percussion Auscultation: normal bowel sounds Rectal Exam - Female: deferred General: Yes bladder normal to palpation External Female Exam: No lesion Speculum Exam - Vagina: normal appearance of the vagina, normal palpation, normal vaginal discharge and not erythematous Speculum Exam - Cervix: normal appearance of the cervix and normal palpation Bimanual exam- vagina & uterus: normal bimanual exam, normal palpation, uterine size normal, bladder normal to palpation, consistency normal and normal palpation Bimanual Exam- Adnexa, other: normal adnexae, no masses and no tenderness Assessment & Plan Assessment & Plan (1) Well woman exam: Comment: MULU 1 since 2019 status post LEEP in 2021, co testing in 11/2021 negative Code(s): Z01.419 - Encounter for gynecological examination (general) (routine) without abnormal findings Plan: Cotesting in 2024 per ASCCP guidelines. Mammogram ordered. Counseled the patient about the recommended dietary allowance of 1000 mg of Calcium & 600 IU of vitamin D. The patient was instructed to perform monthly self-breast exams and to schedule an annual exam in a year; All questions answered and the patient verbalized understanding. Instructed the patient to schedule annual exam in a year Orders: Orders MM screening mammo BI Today Z12.31 - Encounter for screening mammogram for malignant neoplasm of breast Referrals Gastroenterology Referral Z12.11 - Encounter for screening for malignant neoplasm of colon Coding Level of Care Code Est Pt Prev Care 40-64y([id number]) Diagnoses Well woman exam Z01.419
[2022-12-12 09:54] VITALS: BP 126/74; BMI 40.0
== END 2022-12-12 10:11 | disposition home or self-care (01) ==
PROVIDERS: PCP Internal Medicine; Visit Provider Obstetrics & Gynecology
DX: Z01.419 Encounter for gynecological examination (general) (routine) without abnormal findings (principal)
CPT/HCPCS: 99396

== ENCOUNTER → 2022-12-12 09:48 | Outpatient (BNVA) | payer OTHER, SELFPAY | PROVIDERS: Visit Provider Obstetrics & Gynecology ==

== ENCOUNTER 2022-12-22 11:30 | Outpatient (REF) | payer OTHER, SELFPAY ==
--- NOTE | ~2022-12-22 | MM_ITS ---
EXAMINATION: MM SCREENING DIGITAL BREAST TOMOSYNTHESIS, BILATERAL CLINICAL INFORMATION: Screening. Asymptomatic. COMPARISON: Mammography: This study is compared with prior exams dating back to 2017. TECHNIQUE: Digital breast tomosynthesis is performed in both the craniocaudal and mediolateral oblique views along with computer-aided detection (CAD). Synthesized 2D images are generated from the tomosynthesis. FINDINGS: The breasts are almost entirely fatty (ACR BI-RADS breast composition Category a). There are no significant masses, abnormal calcifications, or other abnormalities. MM/MM tomosynthesis screening BI IMPRESSION: No mammographic evidence of malignancy. ASSESSMENT: BI-RADS BI-RADS 1 - Negative RECOMMENDATION: Routine annual mammography screening. 1 year F/U This examination should not preclude the clinical evaluation of a suspicious palpable abnormality. This patient's information was entered into a reminder system with a target due date for their next mammogram.
== END 2022-12-22 11:31 | disposition home or self-care (01) ==
LOC: HO.MAMMO 11:30
PROVIDERS: PCP Internal Medicine; Visit Provider Internal Medicine
DX: Z12.31 Encounter for screening mammogram for malignant neoplasm of breast (principal)
CPT/HCPCS: 77063; 77067

== ENCOUNTER → 2022-12-22 11:45 | Outpatient (BNV) | payer OTHER, SELFPAY | PROVIDERS: PCP Internal Medicine; Visit Provider Radiology Diagnostic Radiology | DX: Z12.31 Encounter for screening mammogram for malignant neoplasm of breast (principal) | CPT/HCPCS: 77063; 77067 ==

== ENCOUNTER 2023-03-22 11:01 | Outpatient (REF) | payer OTHER, SELFPAY ==
[2023-03-22 11:16] LABS: MANUAL DIFF FLAG NO
[2023-03-22 11:58] LABS: Basophils Percent Auto 0.3 % (0-2); Eosinophils Absolute Auto 0.3 X10*3/uL (0.0-0.4); Eosinophils Percent Auto 3.4 % (0-4); Hematocrit 36.7 % (37.0-47.0); Hemoglobin 11.9 g/dl (12.0-16.0); Imm Gran Abs Auto 0.04 X10*3/uL (0.00-0.03); Imm Gran Pct Auto 0.4 % (0.0-0.4); Lymphocytes Percent Auto 29.8 % (20-40); Mean Corpuscular HGB Conc 32.4 g/dl (31.0-35.0); Mean Corpuscular Hemoglobin 28.6 pg (27.0-33.0); Mean Corpuscular Volume 88.2 fL (80.0-98.0); Mean Platelet Volume 10.9 fL (9.4-12.3); Monocytes Absolute Auto 0.5 X10*3/uL (0.1-1.2); Monocytes Percent Auto 5.2 % (2-11); Neutrophils Absolute Auto 6.2 x10*3/uL (2.0-8.3); Neutrophils Percent Auto 60.9 % (45-73); Platelet Count 303 X10*3/uL (160-400); Red Blood Count 4.16 X10*6/uL (4.20-5.50); White Blood Count 10.1 X10*3/uL (4.8-10.8)
[2023-03-22 12:44] LABS: Alanine Aminotransferase 9 U/L (0-31); Albumin Level 3.9 g/dL (3.5-5.0); Alkaline Phosphatase 71 U/L (39-117); Anion Gap 12 (12-20); Aspartate Amino Transferase 13 U/L (5-31); Bilirubin Total 0.4 mg/dL (0.0-1.0); Blood Urea Nitrogen 12 mg/dL (9-16); C Reactive Protein 4.73 mg/dL (< or = 0.50); Calcium 9.8 mg/dL (8.4-10.2); Carbon Dioxide 22 mmol/L (22-29); Chloride 107 mmol/L (96-108); Estimated Glomerular Filt Rate > 60; Glucose Random 89 mg/dL (60-115); Potassium 3.8 mmol/L (3.3-5.1); Sodium 137 mmol/L (135-145); Total Protein 7.7 g/dL (6.5-8.0)
[2023-03-22 12:55] LABS: Free T4 (Free Thyroxine) 0.98 ng/dL (0.71-1.85)
[2023-03-22 12:56] LABS: Erythrocyte Sedimentation Rate 37 MM/HR (0-20)
[2023-03-22 13:00] LABS: Vitamin B12 462 pg/mL (200-900)
[2023-03-28 11:03] LABS: Anti Nuclear Antibody Screen NEGATIVE (NEGATIVE)
== END 2023-03-22 11:02 | disposition home or self-care (01) ==
LOC: HO.LAB 11:01
PROVIDERS: PCP Internal Medicine; Visit Provider Internal Medicine
DX: J45.909 Unspecified asthma, uncomplicated (principal); L40.9 Psoriasis, unspecified
CPT/HCPCS: 36415; 80053; 82550; 82607; 84439; 84443; 85025; 85652; 86038; 86140

== ENCOUNTER 2023-06-01 11:34 | Outpatient (REF) | payer OTHER, SELFPAY ==
--- NOTE | ~2023-06-01 | XR_ITS ---
EXAMINATION: XR SINUSES CLINICAL INFORMATION: Nasal congestion for one week. COMPARISON: None available. TECHNIQUE: 3 views of the sinuses were obtained. FINDINGS: Suspect left maxillary sinus mucosal thickening with questionable small left maxillary sinus air-fluid level. Question bilateral sphenoid sinus mucosal thickening. No fracture identified. No radiodense foreign body appreciated. XR/XR sinus min 3V IMPRESSION: Findings as above.
[2023-06-01 14:23] LABS: Influenza A PCR NEGATIVE (Negative); Influenza B PCR NEGATIVE (Negative); Resp Syncy Virus RNA Qual PCR NEGATIVE (Negative); SARS COV2 PCR INHOUSE NEGATIVE (Negative)
== END 2023-06-01 11:35 | disposition home or self-care (01) ==
LOC: HO.XRAY 11:34
PROVIDERS: PCP Internal Medicine; Visit Provider Internal Medicine
DX: R05.9 Cough, unspecified (principal); R51.9 Headache, unspecified
CPT/HCPCS: 0241U; 70220

== ENCOUNTER 2023-09-04 13:41 | Outpatient (REF) | payer OTHER, SELFPAY ==
[2023-09-04 13:58] LABS: MANUAL DIFF FLAG NO
[2023-09-04 14:47] LABS: Basophils Percent Auto 0.2 % (0-2); Eosinophils Absolute Auto 0.5 X10*3/uL (0.0-0.4); Eosinophils Percent Auto 4.3 % (0-4); Hematocrit 39.7 % (37.0-47.0); Hemoglobin 12.7 g/dl (12.0-16.0); Imm Gran Abs Auto 0.05 X10*3/uL (0.00-0.03); Imm Gran Pct Auto 0.5 % (0.0-0.4); Lymphocytes Absolute Auto 2.8 X10*3/uL (1.2-4.9); Lymphocytes Percent Auto 27.2 % (20-40); Mean Corpuscular Hemoglobin 28.5 pg (27.0-33.0); Mean Platelet Volume 10.7 fL (9.4-12.3); Monocytes Absolute Auto 0.5 X10*3/uL (0.1-1.2); Neutrophils Absolute Auto 6.5 x10*3/uL (2.0-8.3); Neutrophils Percent Auto 62.8 % (45-73); Platelet Count 284 X10*3/uL (160-400); Red Blood Count 4.46 X10*6/uL (4.20-5.50); Red Cell Distribution Width 13.2 % (11.0-16.0); White Blood Count 10.4 X10*3/uL (4.8-10.8)
[2023-09-04 14:52] LABS: Estimated Average Glucose 117 mg/dL; Hemoglobin A1c % 5.7 % (<6.0)
[2023-09-04 15:27] LABS: Alanine Aminotransferase 10 U/L (0-31); Albumin Level 3.9 g/dL (3.5-5.0); Alkaline Phosphatase 85 U/L (39-117); Anion Gap 13 (12-20); Aspartate Amino Transferase 13 U/L (5-31); Bilirubin Total 0.5 mg/dL (0.0-1.0); Blood Urea Nitrogen 11 mg/dL (9-16); Calcium 9.5 mg/dL (8.4-10.2); Carbon Dioxide 25 mmol/L (22-29); Chloride 106 mmol/L (96-108); Cholesterol 202 mg/dL (<200); Estimated Glomerular Filt Rate > 60; Glucose Random 95 mg/dL (60-115); Iron 98 mcg/dL (30-160); Percent Iron Saturation 31 % (15-50); Potassium 4.1 mmol/L (3.3-5.1); Sodium 140 mmol/L (135-145); Total Iron Binding Capacity 312 mcg/dL (228-428); Total Protein 7.6 g/dL (6.5-8.0); Unsaturated Iron Binding 214 ug/dL
== END 2023-09-04 13:42 | disposition home or self-care (01) ==
LOC: HO.LAB 13:41
PROVIDERS: PCP Internal Medicine; Visit Provider Internal Medicine
DX: L40.9 Psoriasis, unspecified (principal); D64.9 Anemia, unspecified; J45.909 Unspecified asthma, uncomplicated; Z84.89 Family history of other specified conditions; Z13.1 Encounter for screening for diabetes mellitus
CPT/HCPCS: 36415; 80053; 82465; 83036; 83540; 85025

== ENCOUNTER → 2023-09-28 13:56 | Outpatient (BNVA) | payer OTHER, SELFPAY | PROVIDERS: PCP Internal Medicine; Visit Provider Physician Assistant Medical | DX: S39.012A Strain of muscle, fascia and tendon of lower back, initial encounter (principal); S50.01XA Contusion of right elbow, initial encounter; S60.211A Contusion of right wrist, initial encounter; S80.01XA Contusion of right knee, initial encounter; W01.0XXA Fall on same level from slipping, tripping and stumbling without subsequent striking against object, initial encounter | CPT/HCPCS: 29125; 73080; 73110; 73564; 99204 ==

== ENCOUNTER → 2023-10-02 13:55 | Outpatient (BNVA) | payer OTHER, SELFPAY | PROVIDERS: PCP Internal Medicine; Visit Provider Physician Assistant Medical | DX: S52.121A Displaced fracture of head of right radius, initial encounter for closed fracture (principal); S60.211A Contusion of right wrist, initial encounter; S80.01XA Contusion of right knee, initial encounter; S39.012A Strain of muscle, fascia and tendon of lower back, initial encounter; W01.0XXA Fall on same level from slipping, tripping and stumbling without subsequent striking against object, initial encounter | CPT/HCPCS: 99213 ==

== ENCOUNTER → 2023-10-08 13:32 | Outpatient (BNVA) | payer OTHER, SELFPAY | PROVIDERS: PCP Internal Medicine; Visit Provider Physician Assistant Medical | DX: S52.121A Displaced fracture of head of right radius, initial encounter for closed fracture (principal); S39.012A Strain of muscle, fascia and tendon of lower back, initial encounter; S60.211A Contusion of right wrist, initial encounter; S80.01XA Contusion of right knee, initial encounter; W01.0XXA Fall on same level from slipping, tripping and stumbling without subsequent striking against object, initial encounter | CPT/HCPCS: 99213 ==

== ENCOUNTER 2023-10-11 10:17 | Outpatient (REF) | payer OTHER, SELFPAY ==
--- NOTE | ~2023-10-11 | XR_ITS ---
EXAMINATION: XR ELBOW, RIGHT CLINICAL INFORMATION: Right elbow pain. COMPARISON: Right elbow radiographs dated 09/28/2023. TECHNIQUE: AP, lateral, and oblique views of the right elbow. FINDINGS: Improvement in anatomic alignment of the previously seen anterolateral radial head fracture with mild peripheral new bone/callus formation. Persistent cortical step-off appears to measure approximately 0.1 cm. No new fracture or dislocation. No joint space narrowing or marginal osteophytes. No osseous erosion. No abnormal soft tissue calcification. XR/XR elbow RT min 3V IMPRESSION: Improvement in anatomic alignment of the previously seen radial head fracture with mild peripheral new bone/callus formation. Electronically signed by: Cipriano John MD 11/07/2023 08:58 PM EDT
== END 2023-10-11 10:18 | disposition home or self-care (01) ==
LOC: HO.HOSX 10:17
PROVIDERS: Visit Provider Physician Assistant
DX: M25.521 Pain in right elbow (principal); S52.121D Displaced fracture of head of right radius, subsequent encounter for closed fracture with routine healing
CPT/HCPCS: 73080; 99202

== ENCOUNTER 2023-10-11 15:02 | Outpatient (AMB) | payer OTHER, SELFPAY ==
--- NOTE | 2023-10-11 15:29 | MHC.OFFVIS ---
Vital Signs 10/11/23 15:33 Height 5 ft 6 in Weight 230 lb BMI 37.1 Handedness Right Intake Visit Reasons: FC - Right Elbow fx, WC 09/27/23 Intake Note: Kylie is a 47 year old right hand dominant female who presents today for a evaluation of her right elbow fx, DOI 09/27/23. Patient reports she was walking to the parking lot, there was mud on the ground and she slipped and fell landing on her right elbow. She states having sharp/throbbing pain. Denies numbness and tingling in her hand. Allergies Penicillins Allergy (Intermediate, Verified 12/12/22 09:56) SWELLING HPI HPI FC - Right Elbow fx, WC 09/27/23: Details: 47-year-old female who presents in the office today, as a new patient, for an evaluation of right elbow pain. This is a work-related injury that occurred on 09/27/23 status post a slip and fall causing him to hit his right elbow. He has been out of work and wearing a sling. ? ? While in the office today, the patient reports she was walking in a parking lot that was muddy and slipped. This caused her to fall landing on her right elbow. She confirms a sharp throbbing pain. She denies numbness or tingling in the right hand. ? [facility] Medical History (Updated 10/11/23 @ 15:56 by Marilee Olmedo) COVID-19 vaccine series completed Dysplasia of cervix, low grade (MULU 1) Surgical History Hx of cholecystectomy Family History Maternal Grandmother Uterine cancer Social History Household Members: Spouse Housing: Apartment Alcohol intake: never Patient Tobacco Use Status: Never used Tobacco service: No Current occupational status: employed Current occupation: [employer] Sexual orientation: Straight/Heterosexual Gender identity: Female Female Reproductive History Menstrual Age of Menarche: 12 Review of Systems Const All systems reviewed & are unremarkable except as noted in HPI and below Physical Exam Vital Signs: BMI result Body Mass Index 37.1 Const General: cooperative and no acute distress Orientation/consciousness: patient oriented x3 Resp Effort & Inspection: normal respiratory effort and able to speak in complete sentences Cardio Peripheral pulses: Peripheral pulses 2+ throughout Skin General skin exam: no rashes or lesions noted Neuro General: patient oriented x3 Extrem Other: Right elbow: Tenderness to palpation over the radial head. Lacking about 10 degrees of full extension. Full flexion. Pain with pronation and supination. NVI. Office Procedures Fracture Care Fracture Billing Code: Fracture Billing Code Assessment & Plan Assessment & Plan (1) Right radial head fracture: Code(s): S52.121A - Displaced fracture of head of right radius, initial encounter for closed fracture Category: Medical Plan Ms. Lemus is a 47-year-old female who presents in the office today, as a new patient, for an evaluation of right elbow pain. This is a work-related injury that occurred on 09/27/23 status post a slip and fall causing him to hit his right elbow. He has been out of work and wearing a sling. ? ? While in the office today, the patient reports she was walking in a parking lot that was muddy and slipped. This caused her to fall landing on her right elbow. She confirms a sharp throbbing pain. She denies numbness or tingling in the right hand.? ? The patient is able to wear the sling for comfort. I have encouraged her to come out of the sling to work on gentle ROM to avoid stiffness. She was instructed no heavy lifting more than a coffee cup or cell phone. She will remain out of work until her follow-up. Follow-up will be in four weeks, or sooner if needed. ? ? X-rays of the right elbow which were obtained while in the office today and were reviewed by me, Fatmata Ferris PA-C, redemonstrated a right radial head fracture. ? Orders: Orders XR elbow RT min 3V 10/11/23 M25.529 - Pain in unspecified elbow Patient Instructions: Scribed by Marilee Olmedo medical insurance verifier, for Fatmata Ferris PA-C on 10/11/2023 at 3:09 pm, EST.? Coding Level of Care Code New Pt Level 4 (24127) Diagnoses Right radial head fracture S52.121A CPT Codes Fracture Care - Fracture Billing Code: Fracture Billing Code ([id number])
[2023-10-11 15:33] VITALS: BMI 37.1
== END 2023-10-11 15:54 | disposition home or self-care (01) ==
PROVIDERS: PCP Internal Medicine; Visit Provider Physician Assistant
DX: S52.121A Displaced fracture of head of right radius, initial encounter for closed fracture (principal)
CPT/HCPCS: 99203

== ENCOUNTER 2023-11-08 14:42 | Outpatient (AMB) | payer OTHER, SELFPAY ==
--- NOTE | 2023-11-08 15:52 | A.OFFVIS_ITS ---
Intake Visit Reasons: OV - Right Elbow fx, WC 09/27/23 Intake Note: Kylie is a 47 year old right hand dominant female who presents today for a evaluation of her right elbow fx, DOI 09/27/23. Patient reports she is still having pain. She state that she heard a cracking sound in her elbow 6 days after her appointment with us. Allergies Penicillins Allergy (Intermediate, Verified 12/12/22 09:56) SWELLING HPI HPI OV - Right Elbow fx, WC 09/27/23: Details: 47-year-old right hand dominant female who presents in the office today for a follow-up of a right radial head fracture. This is work related injury. I last saw the patient in the office on 10/11/23 when she was encouraged to only wear the sling for comfort and to remove it to work on gentle ROM. She was given a lifting restriction of no lifting heavier than a coffee cup or cell phone. She was to remain out of work until her follow-up.? ? While in the office today, the patient reports she is unable to fully straighten the right elbow. She states she has pain when moving the right upper extremity. 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[employer] Sexual orientation: Straight/Heterosexual Gender identity: Female Female Reproductive History Menstrual Age of Menarche: 12 Review of Systems Const All systems reviewed & are unremarkable except as noted in HPI and below Physical Exam Const General: cooperative, healthy appearing and no acute distress Resp Effort & Inspection: normal respiratory effort and able to speak in complete sentences Cardio Rate: regular rate Peripheral pulses: Peripheral pulses 2+ throughout GI Palpation (GI): Soft to palpation Skin Lesions: no lesions Rashes: no rashes Extrem Other: Right elbow: Lacking 10 degrees of full extension. Able to fully flex. Able to pronate and supinate with mild pain. No tenderness to palpation over the radial head. Reports tenderness to palpation over the olecranon and the mid-forearm, roughly 3 finger breaths away from the antecubital space. NVI. Assessment & Plan Assessment & Plan (1) Right radial head fracture: Code(s): S52.121A - Displaced fracture of head of right radius, initial encounter for closed fracture Category: Medical Plan Ms. Lemus is a 47-year-old right hand dominant female who presents in the office today for a follow-up of a right radial head fracture. This is work related injury. I last saw the patient in the office on 10/11/23 when she was encouraged to only wear the sling for comfort and to remove it to work on gentle ROM. She was given a lifting restriction of no lifting heavier than a coffee cup or cell phone. She was to remain out of work until her follow-up.? ? While in the office today, the patient reports she is unable to fully straighten the right elbow. She states she has pain when moving the right upper extremity. ? I educated the patient that she might never be able to fully straighten the right elbow but will be able to do any daily activities. She will be referred for physical therapy to work on ROM. She can continue to work on her?home exercises in the meantime. I recommend the patient discontinue the use of the sling; however, she can wear it outside the house only for protection. She was given an out of work note until her follow-up. Follow-up will be in 6 weeks with repeat x-rays, or sooner if needed. ? ? X-rays of the right elbow which were obtained while in the office today and were reviewed by me, Fatmata Ferris PA-C, revealed routine healing of a right radial head fracture. ? Orders: Orders XR elbow RT min 3V Today M25.529 - Pain in unspecified elbow Patient Instructions: Scribed by Marilee Olmedo medical practitioners, for Fatmata Ferris PA-C on 11/08/2023 at 4:01 pm, EST.? Coding Level of Care Code Global (61590) Diagnoses Right radial head fracture S52.121A
== END 2023-11-08 16:12 | disposition home or self-care (01) ==
PROVIDERS: PCP Internal Medicine; Visit Provider Physician Assistant
DX: S52.121A Displaced fracture of head of right radius, initial encounter for closed fracture (principal)
CPT/HCPCS: 99213

== ENCOUNTER 2023-11-08 15:05 | Outpatient (REF) | payer OTHER, SELFPAY ==
--- NOTE | ~2023-11-08 | XR_ITS ---
EXAMINATION: XR ELBOW, RIGHT CLINICAL INFORMATION: Pain in elbow. COMPARISON: X-ray of the right elbow October 11, 2023. TECHNIQUE: AP, lateral, and oblique views of the right elbow. FINDINGS: Intra-articular fracture of the lateral aspect of the radial head redemonstrated. There is slight articular depression measuring approximately 1 mm. This is more evident than previous. No effusion. Remaining bones, joints and soft tissues unremarkable. XR/XR elbow RT min 3V IMPRESSION: Intra-articular fracture of the radial head with slight articular depression. This is more evident than previous. This could be due to slight differences in imaging projection versus slight increased displacement. Electronically signed by: Mahendra Juan MD 12/06/2023 07:08 AM EDT RP
== END 2023-11-08 15:06 | disposition home or self-care (01) ==
LOC: HO.HOSX 15:05
PROVIDERS: PCP Internal Medicine; Visit Provider Physician Assistant
DX: M25.521 Pain in right elbow (principal); S52.121D Displaced fracture of head of right radius, subsequent encounter for closed fracture with routine healing
CPT/HCPCS: 73080; 99212

== ENCOUNTER → 2023-11-09 12:52 | Outpatient (BNVA) | payer OTHER, SELFPAY | PROVIDERS: PCP Internal Medicine; Visit Provider Physician Assistant Medical | DX: S52.124D Nondisplaced fracture of head of right radius, subsequent encounter for closed fracture with routine healing (principal); W01.0XXD Fall on same level from slipping, tripping and stumbling without subsequent striking against object, subsequent encounter | CPT/HCPCS: 99213 ==

== ENCOUNTER → 2023-11-15 14:00 | Outpatient (BNVA) | payer OTHER, SELFPAY | PROVIDERS: PCP Internal Medicine; Visit Provider Physician Assistant Medical | DX: S52.124D Nondisplaced fracture of head of right radius, subsequent encounter for closed fracture with routine healing (principal); W01.0XXD Fall on same level from slipping, tripping and stumbling without subsequent striking against object, subsequent encounter; R20.0 Anesthesia of skin | CPT/HCPCS: 99213 ==

== ENCOUNTER 2023-11-19 09:41 | Outpatient (REF) | payer OTHER, SELFPAY ==
[2023-11-19 11:09] LABS: Cholesterol 202 mg/dL (<200); HDL Cholesterol 53 mg/dL (>40); LDL Cholesterol Calculated 130 mg/dL (<100); Triglycerides 98 mg/dL (<150)
== END 2023-11-19 09:42 | disposition home or self-care (01) ==
LOC: HO.10HDL 09:41
PROVIDERS: Visit Provider Internal Medicine
DX: Z02.1 Encounter for pre-employment examination (principal); Z13.6 Encounter for screening for cardiovascular disorders
CPT/HCPCS: 36415; 80061

== ENCOUNTER 2023-11-30 06:17 | Emergency (ER) | payer OTHER, SELFPAY ==
[2023-11-30 06:24] VITALS: BP 155/98; PULSE 96; RESP 20; TEMP 36.6; O2SAT 99; BMI 46.1
[2023-11-30 06:39] VITALS: BP 136/86; PULSE 85; RESP 18; TEMP 36.9; O2SAT 97
--- NOTE | 2023-11-30 07:10 | PC.NURSE ---
Patient from home with complaints of total body pain. Reports in [address] flores with fibromyalgia and has been treated with 650 TID of tylenol. States about 3 months ago asked to be placed on cymbalta and took it for x1 month did not like the side effects. Reports felt nauseous despite also taking anti nausea medication. Reports stopped taking cymbalta x 1 month ago and is no longer experiencing the adverse side effect but can no longer tolerate the total body pain. Reports stabbing feeling in feet and a burning in upper extremities. States asked Dr. Flores to prescribe her other medications she looked up online but he told her no because there are too many side effects. States total body pain has been worse over the last month and can no longer tolerate the pain.
--- NOTE | 2023-11-30 07:18 | ED.GENADULT ---
HPI - General Adult General Chief complaint: General Medical Stated complaint: fibromyalgia Time Seen by Provider: 11/30/23 07:03 Source: patient Mode of arrival: ambulatory Limitations: no limitations History of Present Illness HPI narrative: 48 year old female presents to the ER with chronic pain all over her body due to fibromyalgia. She states she has had it for 4 years and treated with tylenol. She then trialed cymbalta but did not like the side effects. Since has gone back to tylenol but states she feels like she can't sleep. 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 She denies any falls or injuries. Pain is all over. She denies cough fever or chest pain. Related Data Home Medications ?Medication ?Instructions ?Recorded ?Confirmed apremilast 10 mg (4)-20 mg (4)-30 See Rx Instructions PO PER PKG DIR 12/07/21 mg (47) tablets in a dose pack (Otezla Starter) Previous Rx's ?Medication ?Instructions ?Recorded ibuprofen 800 mg tablet 800 mg PO TID #30 tabs 09/28/23 ondansetron 4 mg disintegrating 4 mg PO Q8H PRN nausea and 10/08/23 tablet vomiting #10 tabs etonogestrel 0.12 mg-ethinyl 1 vag ring vaginal Q4W 4 weeks #1 11/07/23 estradiol 0.015 mg/24 hr vaginal ea ring ibuprofen 800 mg tablet 800 mg PO TID #30 tabs 11/09/23 oxycodone 5 mg tablet 5 mg PO BEDTIME #7 tabs 11/09/23 Allergies Allergy/AdvReac Type Severity Reaction Status Date / Time Penicillins Allergy Intermediate SWELLING Verified 11/30/23 06:27 Review of Systems Review of Systems: Review of systems: General: Patient denies any fever chills recent illness or falls Musculoskeletal: Denies back pain or body aches or other injuries HEENT: denies headache, runny nose, ear pain Respiratory: denies shortness of breath, cough Cardiovascular: no chest pain or palpitations : denies dysuria, frequency Abdomen: no nausea vomiting denies abdominal pain Extremities: no swelling, no pain Skin: no diaphoresis Yes all other systems are reviewed and are negative [facility] Past Medical History Medical History (Updated 11/30/23 @ 07:21 by Angus Rodriguez DO) COVID-19 vaccine series completed Dysplasia of cervix, low grade (MULU 1) Surgical History Hx of cholecystectomy Family History Family History Maternal Grandmother Uterine cancer Social History Social History Household Members: Spouse Housing: Apartment Alcohol intake: never Patient Tobacco Use Status: Never used Tobacco Smoked in Last 30 Days: No Use of substances other than those prescribed or required for medical reasons: No Do you have a plan to hurt others: No Plan service: No Current occupational status: employed Current occupation: [employer] Sexual orientation: Straight/Heterosexual Gender identity: Female Physical Exam ED Vital Signs: Vital Signs - 24 hr 11/30/23 06:24 11/30/23 06:39 Temperature 97.9 F 98.4 F Pulse Rate 96 85 Respiratory Rate 20 18 Blood Pressure 155/98 H 136/86 Pulse Oximetry 99 97 Oxygen Delivery Method Room Air Room Air BMI result Body Mass Index 46.1 General: Well-appearing well-nourished in no signs of distress HEENT: Normocephalic atraumatic Neck: No signs of JVD, no masses no tenderness or lymphadenopathy Cardiovascular: Regular rate and rhythm Respiratory: Clear to auscultation bilaterally Abdomen: Soft nontender no masses Extremities: Normal pedal pulses no signs of edema Skin: Dry warm no rashes Back: No tenderness full ROM Medical Decision Making Medical Decision Making MDM Narrative: After the patient ibuprofen and did try Benadryl help her sleep at night she did not want either of the medications right now and she wants to leave. 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 You were offered ibuprofen and educated to try benadryl to help you sleep. Please call to follow up with your doctor. Prescriptions: No Action etonogestrel-ethinyl estradiol 0.12-0.015 mg/24 hr ring 1 vag ring vaginal Q4W 28 Days Qty: 1 6RF Rx Instructions: leave in place for 3 weeks of a 4-week cycle oxycodone 5 mg tablet 5 mg PO BEDTIME Qty: 7 0RF Rx Instructions: Partial Fill upon patient request. ibuprofen 800 mg tablet 800 mg PO TID Qty: 30 0RF Otezla Starter 10 mg (4)-20 mg (4)-30 mg (47) tablets,dose pack See Rx Instructions PO PER PKG DIR Rx Instructions: PO PER PKG DIR ibuprofen 800 mg tablet 800 mg PO TID Qty: 30 0RF ondansetron 4 mg tablet,disintegrating 4 mg PO Q8H PRN (Reason: nausea and vomiting) Qty: 10 0RF Print Language: Hebrew
[2023-11-30 07:30] VITALS: BP 136/86; PULSE 85; RESP 18; TEMP 36.9; O2SAT 98
== END 2023-11-30 07:31 | disposition home or self-care (01) ==
PROVIDERS: Emergency Provider Student in an Organized Health Care Education/Training Program; PCP Internal Medicine
DX: R52 Pain, unspecified (principal)
CPT/HCPCS: 99283; 99284

== ENCOUNTER → 2023-12-04 14:27 | Outpatient (BNVA) | payer OTHER, SELFPAY | PROVIDERS: PCP Internal Medicine; Visit Provider Physician Assistant Medical | DX: S52.124D Nondisplaced fracture of head of right radius, subsequent encounter for closed fracture with routine healing (principal); W01.0XXD Fall on same level from slipping, tripping and stumbling without subsequent striking against object, subsequent encounter | CPT/HCPCS: 99213 ==

== ENCOUNTER 2023-12-11 13:00 | Outpatient (RCR) | payer OTHER, BC, SELFPAY ==
--- NOTE | 2023-11-19 11:16 | MHC.OT.EP ---
[address] [phone] Occupational Therapy Plan of Care Patient Name: Kylie Lemus Date of Evaluation: 11/19/23 Diagnosis: Right radial head fx Pain Location: 5/10 constant pain in right elbow/forearm Pain Score: 5 Pain Scale Used: Numeric (0 - 10) Aggravating Factors: General use and movement, forceful tasks, sleeping Alleviating Factors: Motrin, occasional sling use Assessment: 48 yo female presents s/p right radial head fx, after falling in her work parking lot. She was seen in [facility], x-ray showed radial head fracture and given sling, she was referred to [facility] and sling per comfort only. Today she is almost 8 weeks and doing fairly well. 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 She has tightness w/ forearm rotation and wrist range and is guarded with movements. I anticipate she will do well w/ course of OT to progress range, strength and overall functional use of right arm w/ goal of returning to work and regular daily activity. Frequency and Duration: The patient will be seen 2x/wk for 4 weeks Short Term Goals: Good follow through w/ HEP Right GG 20lb Ind w/ self STM [facility] Goals: Ind w/ progression of strengthening Right GG 30lb Elbow flex >140 Elbow ext <10 Treatment Plan: Therapeutic Exercise Therapeutic Activity Home Exercise Program Patient Education ADL Training MHP Cold Packs Joint Mobilization Soft Tissue Mobilization Kinesiotaping Electronically Signed By: Celina Ramirez OTR/L CHT Please Sign and return to therapist. Thank you once again for your referral.
--- NOTE | 2023-12-03 10:50 | MHC.OT.OP ---
[address] [phone] F: [phone] Occupational Therapy Progress Note Patient Name: Kylie Lemus Diagnosis: Right radial head fx Date of Evaluation: 11/19/23 Treatments to Date: 4 Subjective: I'm cooking, sweeping, vacuuming...I'm trying to do more stuff Pain Score: 3 Pain Location: right elbow Objective Measures: Gross grasp 20lb Elbow ext 10 flex 145 Status: Progressing Assessment: 9.5 weeks - progressing well w/ flexion and strength. Good follow through w/ HEP and massage. very motivated. Tightness and pain primarily w/ full extension in palm up position, pt w/ good understanding of importance of allowing full range if she wants to achieve full extension. 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 Short Term Goals: Good follow through w/ HEP (met) Right GG 20lb (met) Ind w/ self STM (met) [facility] Goals: Ind w/ progression of strengthening Right GG 30lb Elbow flex >140 Elbow ext <10 Frequency and Duration: The patient will be seen 2x/wk for 2 weeks Treatment Plan: Therapeutic Exercise Therapeutic Activity Home Exercise Program Patient Education Edema Control ADL Training MHP Cold Packs Joint Mobilization Soft Tissue Mobilization Kinesiotaping Electronically Signed By: CHANTEL Gayle/Astrid ARNETT Reviewed/agree with student documentation: Therapist:
--- NOTE | 2024-01-16 09:15 | MHC.OT.DC ---
[address] [phone] F: [phone] Occupational Therapy Discharge Note Patient Name: Kylie Lemus Provider: Petrona Coleman PA-C Diagnosis: Right radial head fx Date of Evaluation: 11/19/23 Date of Discharge: 01/16/24 Treatments to Date: 6 Discharge Summary: Kylie was last seen in OT over a month ago, at that time she was doing fairly well and progressing w/ strength and endurance. Elbow range within functional level but still some tightness in muscles. I believe with contd stretch and massage she could achieve even more extension. She had been somewhat anxious about return to work with forceful tasks, but she has not followed up for further OT services and I anticipate she has been doing well. Electronically Signed By: Celina Ramirez OTR/L CHT Please Sign and return to therapist, thank you for your referral.
== END 2024-01-16 09:16 | disposition home or self-care (01) ==
LOC: HO.OT 13:00
PROVIDERS: PCP Internal Medicine; Visit Provider Physician Assistant Medical
DX: S52.121D Displaced fracture of head of right radius, subsequent encounter for closed fracture with routine healing (principal); W01.0XXD Fall on same level from slipping, tripping and stumbling without subsequent striking against object, subsequent encounter
CPT/HCPCS: 97110; 97140; 97165

== ENCOUNTER 2023-12-14 13:32 | Outpatient (AMB) | payer OTHER, SELFPAY ==
--- NOTE | 2023-12-14 13:35 | MHC.OFFVIS ---
Intake Visit Reasons: OV - Right Elbow fx, WC 09/27/23 Intake Note: Kylie is a 48 year old female who presents to the office today for a right elbow fx WC 09/27/23. Pt states she has been doing OT 2x a week which she states has really been helping. Pt denies any pain. Allergies Penicillins Allergy (Intermediate, Verified 12/14/23 13:35) SWELLING HPI HPI OV - Right Elbow fx, WC 09/27/23: Details: 48-year-old right hand dominant female who presents in the office today for a follow-up of a right radial head fracture. This is work related injury. I last saw the patient in the office on 10/11/23 when she was recommended to discontinue the use of sling. She may wear a sling outside the house for protection. She was referred to physical therapy, meanwhile she was encouraged to continue home exercise. She was given a work note stating to remain out of work until her follow-up. While in the office today, the patient reports she is doing well. She currently denies experiencing any pain. She mentions attending occupational therapy twice a week with benefits. 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[employer] Sexual orientation: Straight/Heterosexual Gender identity: Female Female Reproductive History Menstrual Age of Menarche: 12 Review of Systems Const All systems reviewed & are unremarkable except as noted in HPI and below Physical Exam Const General: cooperative, healthy appearing and no acute distress Resp Effort & Inspection: normal respiratory effort and able to speak in complete sentences Cardio Rate: regular rate Peripheral pulses: Peripheral pulses 2+ throughout GI Palpation (GI): Soft to palpation Skin Lesions: no lesions Rashes: no rashes Extrem Other: Right elbow: Lacking 10 degrees of full extension. Able to fully flex. Able to pronate and supinate with mild pain. No tenderness to palpation over the radial head. Reports tenderness to palpation over the olecranon and the mid-forearm, roughly 3 finger breaths away from the antecubital space. NVI. Assessment & Plan Assessment & Plan (1) Right radial head fracture: Code(s): S52.121A - Displaced fracture of head of right radius, initial encounter for closed fracture Category: Medical Plan Ms. Lemus is a 48-year-old right hand dominant female who presents in the office today for a follow-up of a right radial head fracture. This is work related injury. I last saw the patient in the office on 10/11/23 when she was recommended to discontinue the use of sling. She may wear a sling outside the house for protection. She was referred to physical therapy, meanwhile she was encouraged to continue home exercise. She was given a work note stating to remain out of work until her follow-up. While in the office today, the patient reports she is doing well. She currently denies experiencing any pain. She mentions attending occupational therapy twice a week with benefits. The patient will return to work full-time, regular duty beginning from 12/17/23. Follow-up will be PRN, or sooner if needed. X-rays of the right elbow, which were obtained while in the office today and were reviewed by me, Fatmata Ferris PA-C, revealed: Routine healing of radial head fracture. Orders: Orders XR elbow RT min 3V 12/14/23 M25.529 - Pain in unspecified elbow Patient Instructions: Scribed by Sheila Haney medical office specialist, for Fatmata Ferris PA-C on 12/14/23 at 2:05 pm EST. Coding Level of Care Code Global (79299) Diagnoses Right radial head fracture S52.121A
== END 2023-12-14 14:06 | disposition home or self-care (01) ==
PROVIDERS: PCP Internal Medicine; Visit Provider Physician Assistant
DX: S52.121A Displaced fracture of head of right radius, initial encounter for closed fracture (principal)
CPT/HCPCS: 99213

== ENCOUNTER → 2023-12-27 09:46 | Outpatient (BNVA) | payer OTHER, SELFPAY | PROVIDERS: PCP Internal Medicine; Visit Provider Physician Assistant Medical | DX: S52.124D Nondisplaced fracture of head of right radius, subsequent encounter for closed fracture with routine healing (principal); W01.0XXA Fall on same level from slipping, tripping and stumbling without subsequent striking against object, initial encounter | CPT/HCPCS: 99213 ==

== ENCOUNTER 2023-12-28 13:38 | Outpatient (REF) | payer OTHER, SELFPAY ==
--- NOTE | ~2023-12-28 | MM_ITS ---
EXAMINATION: MM SCREENING DIGITAL BREAST TOMOSYNTHESIS, BILATERAL CLINICAL INFORMATION: Screening. Asymptomatic. COMPARISON: Mammography: Comparison is made with available priors TECHNIQUE: Digital breast mammography with tomosynthesis is performed in both the craniocaudal and mediolateral oblique views along with computer-aided detection (CAD). FINDINGS: There are scattered areas of fibroglandular density (ACR BI-RADS breast composition Category b). There are no significant masses, abnormal calcifications, or other abnormalities. MM/MM tomosynthesis screening BI IMPRESSION: No mammographic evidence of malignancy. ASSESSMENT: BI-RADS BI-RADS 1 - Negative RECOMMENDATION: Routine annual mammography screening. 1 year F/U This examination should not preclude the clinical evaluation of a suspicious palpable abnormality. This patient's information was entered into a reminder system with a target due date for their next mammogram. Electronically signed by: oSnia Blackwell DO 01/07/2024 07:41 PM [facility]
== END 2023-12-28 13:39 | disposition home or self-care (01) ==
LOC: HO.MAMMO 13:38
PROVIDERS: PCP Internal Medicine; Visit Provider Internal Medicine
DX: Z12.31 Encounter for screening mammogram for malignant neoplasm of breast (principal)
CPT/HCPCS: 77063; 77067

== ENCOUNTER → 2023-12-28 14:15 | Outpatient (BNV) | payer OTHER, SELFPAY | PROVIDERS: PCP Internal Medicine; Visit Provider Internal Medicine | DX: Z12.31 Encounter for screening mammogram for malignant neoplasm of breast (principal) | CPT/HCPCS: 77063; 77067 ==

== ENCOUNTER → 2024-01-10 13:14 | Outpatient (BNVA) | payer OTHER, SELFPAY | PROVIDERS: PCP Internal Medicine; Visit Provider Physician Assistant Medical | DX: S52.124D Nondisplaced fracture of head of right radius, subsequent encounter for closed fracture with routine healing (principal); W01.0XXD Fall on same level from slipping, tripping and stumbling without subsequent striking against object, subsequent encounter | CPT/HCPCS: 99213 ==

== ENCOUNTER 2024-03-14 11:26 | Outpatient (REF) | payer OTHER, SELFPAY ==
[2024-03-14 12:51] LABS: MANUAL DIFF FLAG NO
[2024-03-14 12:54] LABS: Basophils Percent Auto 0.4 % (0-2); Eosinophils Absolute Auto 0.6 X10*3/uL (0.0-0.4); Eosinophils Percent Auto 6.6 % (0-4); Hematocrit 37.6 % (37.0-47.0); Hemoglobin 12.1 g/dl (12.0-16.0); Imm Gran Abs Auto 0.04 X10*3/uL (0.00-0.03); Imm Gran Pct Auto 0.5 % (0.0-0.4); Lymphocytes Absolute Auto 2.5 X10*3/uL (1.2-4.9); Lymphocytes Percent Auto 29.9 % (20-40); Mean Corpuscular HGB Conc 32.2 g/dl (31.0-35.0); Mean Corpuscular Hemoglobin 28.1 pg (27.0-33.0); Mean Corpuscular Volume 87.2 fL (80.0-98.0); Mean Platelet Volume 10.1 fL (9.4-12.3); Monocytes Absolute Auto 0.4 X10*3/uL (0.1-1.2); Monocytes Percent Auto 4.9 % (2-11); Neutrophils Absolute Auto 4.9 x10*3/uL (2.0-8.3); Neutrophils Percent Auto 57.7 % (45-73); Platelet Count 297 X10*3/uL (160-400); Red Blood Count 4.31 X10*6/uL (4.20-5.50); Red Cell Distribution Width 13.1 % (11.0-16.0); White Blood Count 8.5 X10*3/uL (4.8-10.8)
[2024-03-14 13:03] LABS: Estimated Average Glucose 117 mg/dL; Hemoglobin A1c % 5.7 % (<6.0); Total Hemoglobin (HGBA1C) 3186.3434 umol/L
[2024-03-14 13:19] LABS: Alanine Aminotransferase 23 U/L (0-31); Alkaline Phosphatase 92 U/L (39-117); Anion Gap 8 (12-20); Aspartate Amino Transferase 24 U/L (5-31); Bilirubin Total 0.3 mg/dL (0.0-1.0); Blood Urea Nitrogen 12 mg/dL (9-16); Calcium 9.1 mg/dL (8.4-10.2); Carbon Dioxide 25 mmol/L (22-29); Chloride 109 mmol/L (96-108); Estimated Glomerular Filt Rate > 60; Glucose Random 132 mg/dL (60-115); Sodium 138 mmol/L (135-145); Total Protein 7.5 g/dL (6.5-8.0)
[2024-03-14 13:27] LABS: Thyroid Stimulating Hormone 1.31 uIU/mL (0.32-4.0)
== END 2024-03-14 11:27 | disposition home or self-care (01) ==
LOC: HO.10HDL 11:26
PROVIDERS: Visit Provider Internal Medicine
DX: Z13.1 Encounter for screening for diabetes mellitus (principal); J45.909 Unspecified asthma, uncomplicated; L40.9 Psoriasis, unspecified; R35.89 Other polyuria
CPT/HCPCS: 36415; 80053; 83036; 84443; 85025

== ENCOUNTER 2024-03-28 10:46 | Outpatient (REF) | payer OTHER, SELFPAY ==
--- OUTSIDE RECORDS SUMMARY | 2024-03-28 12:42 | XMS_ITS | Encounter Summary ---
Author Organization [employer] Address [address] [facility] 7 [place] [address] Care Team Providers Care Hide Or Skin Buffer Name Role Phone Denice Tristan OD Primary Care Provider [phone] Encounter Details Date Type Department Care Team ([facility] Contact Info) Description 08/22/2022 Abstract [facility] ADULT D[facility]AL [address] [place] [address] Minor Gilliam, SNEHAL [address] [place] [address] Social History Tobacco Use Types Packs/Day Years Used Date Smoking Tobacco: Never Smokeless Tobacco: Never Alcohol Use Standard Drinks/Week Comments Never 0 (1 standard drink = 0.6 oz pur e alcohol) Comments Unknown Sex and Gender Information Value Date Recorded Sex Assigned at Female 12/26/2021 10:14 AM EDT Legal Sex Female 10:14 AM EDT Gender Identity Female 12/26/2021 10:14 AM EDT Sexual Orientation Straight 12/26/2021 10 :14 AM EDT COVID-19 Exposure Response Date Recorded In the last 10 days, have yo u been in contact with someone who was confirmed or suspected to have Coronavirus/COVID-19? No / Unsure 08/21/2022 9:51 AM EDT documented as of this encounter Plan of Treatment Not on file documented as of this encounter Visit Diagnoses Not on filedocumented in this encounter Care Teams Hide Or Skin Buffer Relationship Specialty Start Date End Date Dneice Tristan OD [address] [place] [address] PCP - General Optometry 04/29/18 03/05/23 documented as of this encounter
--- OUTSIDE RECORDS SUMMARY | 2024-03-28 12:42 | XMS_ITS | Clinical Summary ---
Author Organization [employer] Address [address] [place] [address] 7 [place] [address] Care Team Providers Care Box Annealer Name Role Phone Unavailable Primary Care Provider Unavailabl e Allergies Active Allergy Reactions Criticality Noted Date Comments Penicillins High 03/03/2014 Other reaction(s): Anaphylaxis Medications Otezla 30 MG tablet 06/23/2022 Active DULoxetine (Cymbalta) [address] capsule Take 30 mg by mouth in the morning. 03/19/2023 Active Active Problems Problem Noted Date Diagnosed Date Dental caries 04/11/2023 Dental plaque 08/01/2022 Gingival recession, localized 08/01/2022 Social History Tobacco Use Types Packs/Day Years Used Date Smoking Tobacco: Never Smokeless Tobacco: Never Tobacco Cessation:Counseling Given: Not Answered Alcohol Use Standard Drinks/Week Comments Never 0 (1 standard drink = 0.6 oz pur e alcohol) Comments Unknown Sex and Gender Information Value Date Recorded Sex Assigned at Female 12/26/2021 10:14 AM EDT Legal Sex Female 10:14 AM EDT Gender Identity Female 12/26/2021 10:14 AM EDT Sexual Orientation Straight 12/26/2021 10 :14 AM EDT Last Filed Vital Signs Vital Sign Reading Time Taken Comments Blood Pressure 130/70 05/21/2023 9:09 AM EDT Pulse 76 05/21/2023 9:09 AM EDT Temperature - - Respiratory Rate - - Oxygen Saturation - - Inhaled Oxygen Concentration - - Weight - - Height - - Body Mass Index - - Plan of Treatment Health Maintenance Due Date Last Done Comments CT Colonography 1974 Colonoscopy 1974 Colorectal Cancer Screening 1974 Depression Screening 1974 FIT DNA/Cologuard 1974 FIT 1974 FOBT 1974 HIV Screening 1974 Lipid Panel 1974 SDOH Screening 1974 Sigmoidoscopy 1974 Alcohol/Substance Use Screening 1986 Family Planning (PISQ) 1989 Hepatitis C Screening 1992 Hepatitis B Vaccines (1 of 3 - 19+ 3-dose series) 1993 Pap Smear 11/19/1995 Cervical Cancer Screening 2004 HPV/Cotest 2004 Mammogram 2014 Dental X-Ray: Full Mouth 06/02/2023 05/31/2020, 11/27 Dental X-Ray: Bitewings 08/03/2023 08/02/19, 07/10/2022, 05/31/2020, Additional history exists Dental Oral Exam 10/11/2023 04/11/2023, 07/2022, 05/31/2020, Additional history exists Dental Prophylaxis 10/11/2023 04/11/2023, 0 08/01/2022, 05/31/2020, Additional history exists COVID-19 Vaccine ( - season) 2023 Influenza Vaccine (#1) 2023 Tobacco Screening 05/20/2024 05/21/2023 Zoster Vaccines (1 of 2) 2024 DTaP/Tdap/Td Vaccines (2 - Td or Tdap) 07/25/2028 07/25/2018 RSV Patients and Patients Aged 60 years or older (1 - 1-dose 75+ series) 2049 HIB Vaccines Aged Out No longer eligi ble based on patient's age to complete this topic HPV Vaccines Aged Out No longer eligi ble based on patient's age to complete this topic Hepatitis A Vaccines Aged Out No long er eligible based on patient's age to complete this topic IPV Vaccines Aged Out No longer eligi ble based on patient's age to complete this topic Meningococcal Vaccine Aged Out No adriana erick eligible based on patient's age to complete this topic Pneumococcal Vaccine: Pediatrics (0 to 5 Years) and At-Risk Patients (6 to 49) Years) Aged Out No longer eligible based on patient's age to complete this topic RSV under 20 months Aged Out No longe r eligible based on patient's age to complete this topic Rotavirus Vaccines Aged Out No longer eligible based on patient's age to complete this topic Procedures Procedure Name Priority Date/Time Associated Diagnosis Comments Full PROPHYLAXIS - ADULT Routine 024 10:00 AM EST Dental plaque PERIODIC ORAL EVALUATION - ESTABLISHED PATIENT Routine 04/11/2023 10:00 AM EST Dental caries Dental plaque Gingival recession, localized BITEWINGS - 4 RADIOGRAPHIC IMAGES Routine 08/01/2022 10:00 AM EDT Dental caries Dental plaque DIAGNOSTIC - DIAGNOSTIC IMAGING - INTRAORAL - COMPREHENSIVE SERIES OF RADIOGRAPHIC IMAGES Routine 05/31/2020 12:00 AM EDT from Last 3 Months or Most Recently Relevant to Health Maintenance Insurance DENTAL - [facility]
--- OUTSIDE RECORDS SUMMARY | 2024-03-28 12:42 | XMS_ITS | Encounter Summary ---
Author Organization [employer] Address [address] [place] [address] 7 [place] [address] Care Team Providers Care Vocational Education Professional Name Role Phone Denice Tristan OD Primary Care Provider [phone] Encounter Details Date Type Department Care Team (Latest Contact Info) Description 05/31/2020 Abstract [facility], Provider, DDS Social History Tobacco Use Types Packs/Day Years Used Date Smoking Tobacco: Never Assessed Comments Unknown Sex and Gender Information Value Date Recorded Sex Assigned at Female 12/26/2021 10:14 AM EDT Legal Sex Female 10:14 AM EDT Gender Identity Female 12/26/2021 10:14 AM EDT Sexual Orientation Straight 12/26/2021 10 :14 AM EDT documented as of this encounter Plan of Treatment Not on file documented as of this encounter Visit Diagnoses Not on filedocumented in this encounter Care Teams Vocational Education Professional Relationship Specialty Start Date End Date Denice Tristan OD [address] [place] [address] PCP - General Optometry 04/29/18 03/05/23 documented as of this encounter
--- OUTSIDE RECORDS SUMMARY | 2024-03-28 12:42 | XMS_ITS | Encounter Summary ---
Author Organization [employer] Address [address] [facility] 7 [place] [address] Care Team Providers Care Store Standards Associate Name Role Phone Denice Tristan OD Primary Care Provider [phone] Encounter Details Date Type Department Care Team ([facility] st Contact Info) Description 07/27/2022 Abstract [facility] ADULT DENTAL [address] [place] [address] Minor Gilliam, SNEHAL [address] [place] [address] Social History Tobacco Use Types Packs/Day Years [...] suspected to have Coronavirus/COVID-19? No / Unsure 07/10/2022 11:05 AM EDT documented as of this encounter Plan of Treatment Not on file documented as of this encounter Visit Diagnoses Not on filedocumented in this encounter Care Teams Store Standards Associate Relationship Specialty Start Date End Date Denice Tristan OD [address] [place] [address] PCP - General Optometry 04/29/18 03/05/23 documented as of this encounter
== END 2024-03-28 10:47 | disposition home or self-care (01) ==
LOC: HO.LNP 10:46
PROVIDERS: PCP Internal Medicine; Visit Provider Advanced Practice Midwife
DX: Z01.419 Encounter for gynecological examination (general) (routine) without abnormal findings (principal); N87.0 Mild cervical dysplasia; Z11.3 Encounter for screening for infections with a predominantly sexual mode of transmission; R73.09 Other abnormal glucose; A63.0 Anogenital (venereal) warts; E66.01 Morbid (severe) obesity due to excess calories; Z68.42 Body mass index [BMI] 45.0-49.9, adult
CPT/HCPCS: 87626; 88175

== ENCOUNTER 2024-03-28 12:09 | Outpatient (REF) | payer OTHER, SELFPAY ==
[2024-03-28 16:18] LABS: CT PCR NOT DETECTED (Not Detect.); NG PCR NOT DETECTED (Not Detect.)
[2024-03-29 04:18] LABS: Syphilis Screen Nonreactive (Nonreactive)
[2024-03-29 04:33] LABS: HBsAGNum1 0.34 S/CO (0.00-0.99); HIV AB/AG Nonreactive (Nonreactive); HIV Num 1 0.06 S/CO (0.00-0.99); Hepatitis B Surface Antigen Negative (Negative); ~Hepatitis C Antibody Nonreactive (Nonreactive)
[2024-03-29 15:42] LABS: Bacterial Vaginosis PCR NEGATIVE (Negative); Candida Group PCR NOT DETECTED (Not Detect); Candida glab krusei PCR NOT DETECTED (Not Detect); Trichomonas vaginalis PCR NOT DETECTED (Not Detect)
== END 2024-03-28 12:10 | disposition home or self-care (01) ==
LOC: HO.LAB 12:09
PROVIDERS: Visit Provider Advanced Practice Midwife
DX: N89.8 Other specified noninflammatory disorders of vagina (principal)
CPT/HCPCS: 81515; 86780; 86803; 87340; 87389; 87491; 87591

== ENCOUNTER 2024-03-28 12:20 | Outpatient (REF) | payer OTHER, SELFPAY | END 2024-03-28 12:21 | disposition home or self-care (01) | LOC: HO.HHCL 12:20 | PROVIDERS: Visit Provider Advanced Practice Midwife | DX: Z13.89 Encounter for screening for other disorder (principal) ==

== ENCOUNTER 2024-05-02 11:42 | Outpatient (AMB) | payer OTHER, SELFPAY ==
--- NOTE | 2024-05-02 11:44 | MHC.OFFVIS ---
Vital Signs 05/02/24 11:56 BP 118/70 Intake Visit Reasons: vag lump eval Washer Hand Required: No Information Interpreted: non-clinical & clinical Director Consumer: Director Consumer Present (Anaid RAE) Accompanied by: Self / Same As Patient Allergies Penicillins Allergy (Intermediate, Verified 05/02/24 11:56) SWELLING HPI Comments Details: Presenting complaining of perirectal lesion that was 1st seen in November in addition the patient is interested in discussing different options of control PFSH Medical History COVID-19 vaccine series completed Dysplasia of cervix, low grade (MULU 1) Surgical History Hx of cholecystectomy Family History Maternal Grandmother Uterine cancer Social History Household Members: Spouse Housing: Apartment Alcohol intake: never Patient Tobacco Use Status: Never used Tobacco service: No Current occupational status: employed Current occupation: [employer] Sexual orientation: Straight/Heterosexual Gender identity: Female Female Reproductive History Menstrual Age of Menarche: 12 Review of Systems Const All systems reviewed & are unremarkable except as noted in HPI and below Physical Exam Vital Signs: Last Vital Signs BP 118/70 05/02/24 11:56 General: Yes no CVA tenderness External Female Exam: normal external appearance (Perirectal 0.2 cm left lesion genital wart like) and normal appearance of the urethra Speculum Exam - Vagina: normal appearance of the vagina, normal palpation, no lesions and no masses Speculum Exam - Cervix: normal appearance of the cervix, normal palpation, no lesions, no masses and nontender Bimanual exam- vagina & uterus: normal bimanual exam, normal palpation, uterine size normal, normal palpation, uterine shape normal, No Cervical tenderness present and non-tender Bimanual Exam- Adnexa, other: normal adnexae Back/Spine/Pelvis Back: no CVA tenderness Assessment & Plan Assessment & Plan (1) Condyloma acuminata: Code(s): A63.0 - Anogenital (venereal) warts Category: Medical Plan: Discussed with the patient the findings on physical exam, treatment options including cream application to the affected area, excision, cryotherapy or laser, will start with Yael gaston . Insructions given to the pt to call if not improved, presence of any ulcer hard areas or in case of any irrtations, to apply x3/week at bed time and rinse very well in am no longer than 16 weeks. In addition explained to the patient that if the lesion does not resolve, gets larger or change in shape to call back for if biopsy to rule out BILLIE (2) Family planning: Code(s): Z30.09 - Encounter for other general counseling and advice on contraception Category: Social Hx Plan: Discussed with the patient the different options of control including control pills/Nuvaring, DMPA, different types of IUD ?s, sterilization. All the pros, cons, risks and benefits of each were discussed with the patient. The patient decided to go ahead with an IUD, so a more detailed discussion was carried on including types (Progesterone, Copper), mechanism of action, risks (infection, uterine perforation, failure with ectopic , septic AB, dysmenorrhea with Paraguard, others) benefits (efficient contraceptive method, hypo menorrhea with Progesterone IUD, others) GC/CG will be taken next visit and the patient was asked to call day one of next cycle for IUD insertion. Medications: Changed From imiquimod 5% 1 appl topical 3XW 12 ea 0RF To imiquimod 5% 1 appl topical 3XW 16 weeks 12 ea 0RF Coding Level of Care Code Est Pt Level 3 (16035) Diagnoses Condyloma acuminata A63.0 Family planning Z30.
[2024-05-02 11:56] VITALS: BP 118/70
--- OUTSIDE RECORDS SUMMARY | 2024-05-02 13:38 | XMS_ITS | Encounter Summary ---
Author Organization [employer] Address [address] [facility] 7t [place] [address] Care Team Providers Care Grain Broker And Market Operator Name Role Phone Denice Tristan OD Primary Care Provider Encounter Details Date Type Department Care Team ([facility] st Contact Info) Description 07/27/2022 Abstract [facility] ADULT DENTAL [address] [place] [address] Minor Gilliam, SNEHAL [address] [place] [address] Social History Tobacco Use Types Packs/Day Years [...] on filedocumented in this encounter Care Teams Grain Broker And Market Operator Relationship Specialty Start Date End Date Denice Tristan OD [address] [place] [address] PCP - General Optometry 04/29/18 03/05/23 documented as of this encounter
--- OUTSIDE RECORDS SUMMARY | 2024-05-02 13:38 | XMS_ITS | Clinical Summary ---
Author Organization [employer] Address [address] [place] [address] 7 [place] [address] Care Team Providers Care Desktop Publisher Name Role Phone Unavailable Primary Care Provider [...] 10:00 AM EDT Dental caries Dental plaque INTRAORAL - COMPLETE SERIES OF RADIOGRAPHIC IMAGES Routine 05/31/2020 12:00 AM EDT from Last 3 Months or Most Recently Relevant to Health Maintenance Insurance [place] - [employer] [facility] [place]
--- OUTSIDE RECORDS SUMMARY | 2024-05-02 13:38 | XMS_ITS | Encounter Summary ---
Author Organization [employer] Address [address] [facility] 7t [place] [address] Care Team Providers Care Snath Handle Assembler Name Role Phone Denice Tristan OD Primary Care Provider [phone] Encounter Details Date Type Department Care Team ([facility] Contact Info) Description 08/22/2022 Abstract [facility] ADULT DENTAL [address] [place] [address] Minor Gilliam, SNEHAL [address] [place] [address] Social History Tobacco Use Types Packs/Day Years [...] on filedocumented in this encounter Care Teams Snath Handle Assembler Relationship Specialty Start Date End Date Denice Tristan OD [address] [place] [address] PCP - General Optometry 04/29/18 03/05/23 documented as of this encounter
--- OUTSIDE RECORDS SUMMARY | 2024-05-02 13:39 | XMS_ITS | Encounter Summary ---
Author Organization [employer] Address [address] [place] [address] 7 [place] [address] Care Team Providers Care Yard Truck Driver Name Role Phone Denice Tristan OD Primary Care Provider [phone] Encounter Details Date Type Department Care Team [...] on filedocumented in this encounter Care Teams Yard Truck Driver Relationship Specialty Start Date End Date Denice Tristan OD [address] [place] [id number] PCP - General Optometry 04/29/18 03/05/23 documented as of this encounter
== END 2024-05-02 12:23 | disposition home or self-care (01) ==
LOC: HO.HWS 11:42
PROVIDERS: PCP Internal Medicine; Visit Provider Obstetrics & Gynecology
DX: A63.0 Anogenital (venereal) warts (principal); Z30.09 Encounter for other general counseling and advice on contraception
CPT/HCPCS: 99213

== ENCOUNTER 2024-07-03 11:35 | Outpatient (AMB) | payer OTHER, SELFPAY ==
[2024-07-03 11:36] VITALS: BP 130/74; PULSE 85; O2SAT 98; BMI 46.8
--- NOTE | 2024-07-03 11:36 | MHC.OFFVIS ---
Vital Signs 07/03/24 11:36 Height 5 ft 2 in Weight 256 lb BMI 46.8 BP 130/74 Blood Pressure Location Rt brachial Position Sitting Pulse 85 Pulse Source Pulse Oximeter Pulse Oximetry (%) 98 Oxygen Delivery Method Room Air Intake Visit Reasons: yeast infection Allergies Penicillins Allergy (Intermediate, Verified 07/03/24 11:38) SWELLING Medication List - Last Reconciled 07/03/24 by Daisy Flores CNM acetaminophen (Tylenol Extra Strength) 500 mg PO Q6H PRN albuterol sulfate 90 mcg/actuation 1 inh inhalation Q4-6H PRN apremilast (Otezla) 30 mg PO BID Is last menstrual period known: Yes Last menstrual period: 06/11/24 Post menopausal: No Patient : No HPI HPI yeast infection: Details: Because she believes she has a yeast infection she has been using vaginal cream since her vaginal itching started on Sunday and it is helping somewhat but she is still itchy a little bit she has been given a pill before and it worked better. She was told she is prediabetic with her primary care provider but he has retired she will be meeting her new primary care provider who she believes is Dr. Valvrede in July. She had been prescribed Ozempic for weight loss but it was not covered by her insurance she had been sent to bariatric surgery before but she did not find the shakes helpful and she does not really want to have bariatric surgery she does want to lose the weight though she has cut out soda and candy and is trying to eat better. She is not very sexually active because her has some issues as well and she has not had sex in the last couple of weeks so she knows that is not the cause of the irritation. She tends to washes self would just plain water and a little baby soap. [facility] Medical History (Updated 07/03/24 @ 12:33 by Daisy Flores CNM) COVID-19 vaccine series completed Dysplasia of cervix, low grade (MULU 1) Surgical History Hx of cholecystectomy Family History Maternal Grandmother Uterine cancer Social History Household Members: Spouse Housing: Apartment Alcohol intake: never Patient Tobacco Use Status: Never used Tobacco Patient : No service: No Current occupational status: employed Current occupation: [employer] Sexual orientation: Straight/Heterosexual Gender identity: Female Female Reproductive History Menstrual Age of Menarche: 12 Duration of menses: 3-5 days Date of last menstrual period: 06/11/24 control method: none Total pregnancies: 3 Number of Living Children: 2 Ab spontaneous: 1 Date of last pap smear: 03/31/24 History of abnormal pap smear: Yes History of STI: No Date of Mammogram: 12/28/23 Physical Exam Vital Signs: Last Vital Signs Pulse 85 07/03/24 11:36 BP 130/74 07/03/24 11:36 Pulse Ox 98 07/03/24 11:36 Oxygen Delivery Method Room Air 07/03/24 11:36 BMI result Body Mass Index 46.8 Other: Vagina is pink and slightly dry consistent with mild yeast infection no abnormal discharge noted. No erythema. External Female Exam: normal external appearance and normal appearance of the urethra Speculum Exam - Vagina: normal appearance of the vagina and normal vaginal discharge Speculum Exam - Cervix: normal appearance of the cervix and Cervical os closed Results Reviewed Results Reviewed: Name: Kylie Lemus Age/Sex: 48/F Attending: Daisy Flores CNM : 1975 Submitted by: Daisy Flores CNM Copies to: Arturo De La Rosa MD MR #: [id number] Status: DEP REF Collected: 03/28/24 Location: [facility] Received: 03/31/24 Interpretation Satisfactory for evaluation. Negative for intraepithelial lesion or malignancy. HPV High Risk: Negative HPV Genotyping 16: Negative HPV Genotyping 18: Negative Clinical Information LMP: 03/22/2024 Previous PAP test: 2021, neg, MULU 1 Material Received ThinPrep-Cervical Copies To Arturo De La Rosa MD [facility] [address] [place] [address] Daisy Flores CNM [facility] [address], [address]rd [place] [address] Electronically Signed By: KAILEE Short (ASCP) 04/08/24 1230 As of December 19, 2023, the technical services to include automated prescreening performed by the ThinPrep Imaging System, PAP screening and HPV testing will be performed at [facility] (CLIA #[id number]), [address] [place] [address]. Testing for HPV was performed using the [employer] PAVAN 6800 system. The presence of HPV in the female genital tract is associated with a number of diseases, including cervical carcinoma. The HPV DNA high risk pool tests for HPV 31, 33, 35, 39, 45, 51, 52, 56, 58, 59, 66 and 68. The testing for HPV 16 and 18 genotypes has also been performed. A positive result indicates detection of nucleic acid sequences from one or more subtypes, whereas a negative result indicates such sequences were not detected. Patient: Kylie Lemus Age/Sex: 48/F MR#: [id number] Page 1 of 2 Gynecologic Cytology [id number] All professional services are performed by [facility] ([address] [place] [address]; ; CLIA #[id number]). The PAP Test is a screening procedure with the inherent possibility of both false negative and false positive results. Results should be interpreted in the context of historic and current clinical findings. Reliability of the PAP Test is enhanced by performing the test on a regular repetitive basis. Patient: Kylie Lemus Age/Sex: 48/F MR#: [id number] Assessment & Plan Assessment & Plan (1) Dysplasia of cervix, low grade (MULU 1): Comment: Persistent Since 2019 status post LEEP, pathology negative; Pap done 03/28/2024= neg w neg hpv. Code(s): N87.0 - Mild cervical dysplasia Category: Medical (2) Yeast infection of the vagina: Comment: See notes, mild. Rx sent for Diflucan for use now and Monistat that she may use for any time. Code(s): B37.31 - Acute candidiasis of vulva and vagina Category: Medical (3) Obesity, morbid, BMI 40.0-49.9: Code(s): E66.01 - Morbid (severe) obesity due to excess calories Category: Medical Plan Discussed the possible interaction of elevated blood sugars if she is prediabetic with the of the prevelance of yeast. Discussed her efforts to lose weight in the challenges. 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 She tries to bring her own snacks and meals to eat she enjoys being a geothermal heat pump machinist in a man's world and being able to accomplish things that others can not. She was upset that she could not get prescribed the Ozempic she still is concerned about side effects of the medications. She does want to lose weight but she also is concerned and does not want to lose so much weight that she looks skinny with extra skin hanging down. Reviewed the challenges and she is also allergic to almonds so that eliminates some high-protein snacks. Reviewed dietary adjustments in general and the challenges of weight loss she gets around 3000 steps on her job at night. I am prescribing Diflucan because that is her preference and she may use 1 pill now and if she is still symptomatic repeat it in 3 days and she may have refills as well in addition I am prescribing Monistat cream that she can use any time without concern for overuse. Orders: Orders CT NG by PCR Today N89.8 - Other specified noninflammatory disorders of vagina Bacterial Vaginosis Panel Today N89.8 - Other specified noninflammatory disorders of vagina Medications: New miconazole nitrate 2% (Miconazole-7) 1 appful vaginal BEDTIME 7 days 45 grams 2RF fluconazole may repeat second dose 72 hrs after first dose if symptoms persist 150 mg PO Q3D 2 doses 2 tabs 2RF Coding Level of Care Code Est Pt Level 3 (32547) Diagnoses Dysplasia of cervix, low grade (MULU 1) N87.0 Yeast infection of the vagina B37.31 Obesity, morbid, BMI 40.0-49.9 E66.01
--- OUTSIDE RECORDS SUMMARY | 2024-07-03 13:08 | XMS_ITS | Encounter Summary ---
Author Organization [employer] Address [address] [facility] 7t [place] [address] Care Team Providers Care Mental Health Orderly Name Role Phone Denice Tristan OD Primary Care Provider Encounter Details Date Type Department Care Team ([facility] Contact Info) Description 08/22/2022 Abstract [facility] ADULT DENTAL [address] [place] [address] Minor Gilliam, DMD [address] [place] [address] Social History Tobacco Use Types Packs/Day Years [...] on filedocumented in this encounter Care Teams Mental Health Orderly Relationship Specialty Start Date End Date Denice Tristan OD [address] [place] [address] PCP - General Optometry 04/29/18 03/05/23 documented as of this encounter
--- OUTSIDE RECORDS SUMMARY | 2024-07-03 13:08 | XMS_ITS | Clinical Summary ---
Author Organization [employer] Address [address] [place] [address] 7 [place] [address] Care Team Providers Care Interior Design Project Manager Name Role Phone Unavailable Primary Care Provider [...] Additional history exists COVID-19 Vaccine ( - 2023- season) 2023 Influenza Vaccine (#1) 2023 Tobacco [...] Relevant to Health Maintenance Insurance DENTAL - [facility]
--- OUTSIDE RECORDS SUMMARY | 2024-07-03 13:08 | XMS_ITS | Encounter Summary ---
Author Organization [employer] Address [address] [facility] 7 [place] [address] Care Team Providers Care Ceiling Cleaner Name Role Phone Denice Tristan OD Primary Care Provider [phone] Encounter Details Date Type Department Care Team (Latest Contact Info) Description 05/31/2020 Abstract [facility] Dental, Provider, DDS Social History Tobacco [...] on filedocumented in this encounter Care Teams Ceiling Cleaner Relationship Specialty Start Date End Date Denice Tristan OD [address] [place] [address] PCP - General Optometry 04/29/18 03/05/23 documented as of this encounter
--- OUTSIDE RECORDS SUMMARY | 2024-07-03 13:08 | XMS_ITS | Encounter Summary ---
Author Organization [employer] Address [address] [facility] 7t [place] [address] Care Team Providers Care Wire Cutter Name Role Phone Denice Tristan OD Primary Care Provider Encounter Details Date Type Department Care Team ([facility] Contact Info) Description 07/27/2022 Abstract [facility] ADULT DENTAL [address] [place] [address] Minor Gilliam, DMD [address] [place] [address] Social History Tobacco Use Types Packs/Day Years [...] on filedocumented in this encounter Care Teams Wire Cutter Relationship Specialty Start Date End Date Denice Tristan OD [address] [place] [address] PCP - General Optometry 04/29/18 03/05/23 documented as of this encounter
== END 2024-07-03 12:25 | disposition home or self-care (01) ==
LOC: HO.HWSM 11:35
PROVIDERS: PCP Internal Medicine; Visit Provider Advanced Practice Midwife
DX: N87.0 Mild cervical dysplasia (principal); B37.31 Acute candidiasis of vulva and vagina; E66.01 Morbid (severe) obesity due to excess calories
CPT/HCPCS: 99213

== ENCOUNTER 2024-07-03 11:35 | Outpatient (REF) | payer OTHER, SELFPAY ==
--- OUTSIDE RECORDS SUMMARY | 2024-07-03 13:32 | XMS_ITS | Encounter Summary ---
Author Organization [employer] Address [address] [facility] 7t [place] [address] Care Team Providers Care Clinical Neuropsychologist Name Role Phone Denice Tristan OD Primary Care Provider [phone] Encounter Details Date Type Department Care Team ([facility] Contact Info) Description 07/27/2022 Abstract [facility] ADULT DENTAL [address] [place] [address] Minor Gilliam, DMD [address] [place] [address] Social History Tobacco Use Types Packs/Day Years [...] on filedocumented in this encounter Care Teams Clinical Neuropsychologist Relationship Specialty Start Date End Date Denice Tristan OD [address] [place] [address] PCP - General Optometry 04/29/18 03/05/23 documented as of this encounter
--- OUTSIDE RECORDS SUMMARY | 2024-07-03 13:32 | XMS_ITS | Clinical Summary ---
Author Organization [employer] Address [address] [place] [address] 7 [place] [address] Care Team Providers Care Tool Grinder Operator Name Role Phone Unavailable Primary Care Provider [...] Relevant to Health Maintenance Insurance DENTAL - [facility]
--- OUTSIDE RECORDS SUMMARY | 2024-07-03 13:32 | XMS_ITS | Encounter Summary ---
Author Organization [employer] Address [address] [facility] 7t [place] [address] Care Team Providers Care Senior Security Engineer Name Role Phone Denice Tristan OD Primary Care Provider [phone] Encounter Details Date Type Department Care Team ([facility] Contact Info) Description 08/22/2022 Abstract [facility] ADULT DENTAL [address] [place] [address] Minor Gilliam, DMD [address] [place] [address] Social History Tobacco Use Types Packs/Day Years [...] on filedocumented in this encounter Care Teams Senior Security Engineer Relationship Specialty Start Date End Date Denice Tristan OD [address] [place] [address] PCP - General Optometry 04/29/18 03/05/23 documented as of this encounter
--- OUTSIDE RECORDS SUMMARY | 2024-07-03 13:32 | XMS_ITS | Encounter Summary ---
Author Organization [employer] Address [address] [facility] 7 [place] [address] Care Team Providers Care Wood Cabinetmaker Name Role Phone Denice Tristan OD Primary Care Provider [phone] Encounter Details Date Type Department Care Team [...] on filedocumented in this encounter Care Teams Wood Cabinetmaker Relationship Specialty Start Date End Date Denice Tristan OD [address] [place] [address] PCP - General Optometry 04/29/18 03/05/23 documented as of this encounter
[2024-07-03 18:15] LABS: Bacterial Vaginosis PCR NEGATIVE (Negative); Candida Group PCR DETECTED (Not Detect); Candida glab krusei PCR NOT DETECTED (Not Detect); Trichomonas vaginalis PCR NOT DETECTED (Not Detect)
[2024-07-04 13:26] LABS: CT PCR NOT DETECTED (Not Detect.); NG PCR NOT DETECTED (Not Detect.)
== END 2024-07-03 11:36 | disposition home or self-care (01) ==
LOC: HO.LNP 11:35
PROVIDERS: PCP Internal Medicine; Visit Provider Advanced Practice Midwife
DX: N89.8 Other specified noninflammatory disorders of vagina (principal)
CPT/HCPCS: 81515; 87491; 87591

== ENCOUNTER 2024-07-28 13:02 | Outpatient (AMB) | payer OTHER, SELFPAY ==
[2024-07-28 13:04] VITALS: BP 128/80; PULSE 74; TEMP 36.6; O2SAT 98; BMI 47.5
--- NOTE | 2024-07-28 13:04 | A.OFFPC_ITS ---
Vital Signs 07/28/24 13:04 Height 5 ft 2 in Weight 260 lb BMI 47.5 BP 128/80 Blood Pressure Location Lt brachial Position Sitting Pulse 74 Pulse Source Pulse Oximeter Temp 97.9 F Temp Source Axillary Pulse Oximetry (%) 98 Oxygen Delivery Method Room Air Intake Visit Reasons: Routine - see comments Residential Supervisor Required: No Accompanied by: Self / Same As Patient Allergies Penicillins Allergy (Intermediate, Verified 07/28/24 13:08) SWELLING Tobacco use date assessed: 07/28/24 Dental Screening Dental Screen Date: 07/28/24 Did you have a dental visit in the last 12 months?: Yes Did you have a dental problem in the last 6 months where you did not have access to dental care?: No PFSH Medical History (Updated 07/28/24 @ 13:37 by Fazal Capone MD) Fibromyalgia COVID-19 vaccine series completed Dysplasia of cervix, low grade (MULU 1) Surgical History Hx of cholecystectomy Family History (Updated 07/28/24 @ 13:10 by Liz Rivers MA) Maternal Grandmother Uterine cancer Mother No problems noted. Father No problems noted. Social History Household Members: Spouse Housing: Apartment Alcohol intake: never Patient Tobacco Use Status: Former Tobacco user e-Cigarette/Vaping Use: Former Use service: No Current occupational status: employed Current occupation: [employer] Sexual orientation: Straight/Heterosexual Gender identity: Female Cognitive needs: No Hearing needs: No Vision needs: Yes (rx glasses) Female Reproductive History Menstrual Age of Menarche: 12 Questionnaire PHQ-9 Over the last 2 weeks, how often have you been bothered by any of the following problems? 1. Little interest or pleasure in doing things: not at all 2. Feeling down, depressed, or hopeless: several days 3. Trouble falling or staying asleep, or sleeping too much: not at all 4. Feeling tired or having little energy: not at all 5. Poor appetite or overeating: not at all 6. Feeling bad about yourself - or that you are a failure or have let yourself or your family down: not at all 7. Trouble concentrating on things, such as reading the newspaper or watching television: not at all 8. Moving or speaking so slowly that other people could have noticed. Or the o pposite - being so fidgety or restless that you have been moving around a lot more than usual: not at all 9. Thoughts that you would be better off or of hurting yourself in some way: not at all Total score: 1 Source: Developed by Drs. Brandon Brewster, Krystal Wilkins, Hood Lyles and colleagues, with an educational sonido from [employer]. Thrive Questionnaire Date Thrive assessed: 07/28/24 I am a: Patient Within the past 12 months, did the food you bought not last and you didn't have the money to get more?: Never true Within the past 12 months, did you worry whether your food would run out before you got money to buy more?: Never true Do you have trouble paying for medicines?: No Do you have trouble getting transportation to medical appointments?: No Do you have trouble paying your heating and electricity bill?: No Do you have trouble taking care of your child, family member or friend?: No Do you have trouble with day-to-day activities such as bathing, preparing meals, shopping, managing finances, etc.?: No Are you currently unemployed and looking for a job?: No Are you interested in more education?: No THRIVE Score: 0 AUDIT C Alcohol Use Questionnaire (AUDIT-C) 1. How often do you have a drink containing alcohol?: Monthly or less 2. How many drinks containing alcohol do you have on a typical day when you are drinking?: 1 or 2 3. How often do you have six or more drinks on one occasion?: Less than monthly Total Score: 2 BLAIR-7 AMB Questionnaire BLAIR-7 Date BLAIR - 7 assessed: 07/28/24 Feeling nervous, anxious, or on edge: 1 = Several days Not being able to stop or control worryin = Not at all Worrying too much about different things: 0 = Not at all Trouble relaxin = Not at all Being so restless that it is hard to sit still: 0 = Not at all Becoming easily annoyed or irritable: 0 = Not at all Feeling afraid as if something awful might happen: 0 = Not at all Total BLAIR-7 score (0-4 normal; 5-9 mild; 10-14 moderate; 15-21 severe): 1 Source: Developed by Drs. Brandon Brewster, Krystal Wilkins, Hood Lyles and colleagues, with an educational sonido from [employer]. Physical exam (Primary Care) Vital Signs: Last Vital Signs Temp 97.9 F 07/28/24 13:04 Pulse 74 07/28/24 13:04 BP 128/80 07/28/24 13:04 Pulse Ox 98 07/28/24 13:04 Oxygen Delivery Method Room Air 07/28/24 13:04 BMI result Body Mass Index 47.5 Tobacco/Smoking Status: Tobacco use Status Tobacco use date assessed 07/28/24 07/28/24 13:11 Patient Tobacco Use Status Former Tobacco user 07/28/24 13:11 e-Cigarette/Vaping Use Former Use 07/28/24 13:11 PHQ-9: PHQ-9 Score PHQ-9: Total score 1 07/28/24 13:11 Thrive Assessment: Date of Thrive Assessment Date Thrive assessed 07/28/24 07/28/24 13:11 Coding Level of Care Code New Pt Level 4 (10739) Complex EM visit Add On G2211 Diagnoses Obesity, morbid, BMI 40.0-49.9 E66.01 Fibromyalgia M79.7 Assessment & Plan Assessment & Plan (1) Obesity, morbid, BMI 40.0-49.9: Code(s): E66.01 - Morbid (severe) obesity due to excess calories Category: Medical Plan: I encouraged the patient to call her insurance company to determine if they cover GLP-1 analogues. (2) Fibromyalgia: Code(s): M79.7 - Fibromyalgia Category: Medical Plan: Pt for a variety of reasons unable to tolerate gabapentin or Cymbalta. If she is getting help using cannabinoids, i suggested that she continue using it Plan History of Present Illness - The patient is a 48-year-old female presenting with concerns related to prediabetes and fibromyalgia management. - Diagnosed with prediabetes approximately four months prior after experiencing frequent urination, increased appetite, and dizziness. Laboratory work confirmed the condition. Initial plan to use Ozempic for weight management was not covered by insurance, and alternative options were not secured or communicated effectively through the previous provider. - Known fibromyalgia diagnosis established in 2019, with symptoms including severe pain upon awakening, difficulty with physical activities, and significant pain upon standing. Initially managed with gabapentin, discontinued due to intolerable side effects impacting her job. Transitioned to Cymbalta, which was stopped due to adverse gastrointestinal symptoms, headache, and sexual dysfunction. Currently, finds relief using marijuana-based gummies, particularly for night-time symptom management and sleep improvement. 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 - Engages in active work involving significant physical movement and reports a need for flexibility and function to maintain employment - Uses marijuana-derived gummies for nighttime pain relief and sleep, prompted by advice from a family member Review of Systems - Constitutional: Reports dizziness - Endocrine: Reports increased appetite - Genitourinary: Reports frequent urination - Musculoskeletal: Reports generalized body pain - Neurological: Reports headaches - Psychiatric: Reports anorgasmia Physical Exam General: Cooperative and healthy appearing Nutritional Appearance: Well nourished Orientation/consciousness: Patient oriented x3 Limitations: No limitations Head: Normal to inspection General: Appearance normal, both eyes and all related structures Neck: Normal visual inspection Chest: Normal palpation of entire chest wall Respiratory: N ormal respiratory effort Neurology: Patient oriented x3, reports dizziness and movement-related pain. Results - Labs: Blood work indicating prediabetes four months ago Plan 1. Prediabetes - Order updated blood work to assess diabetic status. - Instruct patient to confirm with insurance about potential coverage options for weight management medications. 2. Fibromyalgia - Discontinued prior prescribed medications due to side effects. - Current use of marijuana-derived gummies for night-time symptom management, with reported effective relief. Discussion Notes During the consultation, I discussed the current diagnosis and management options for both the patient's prediabetes and fibromyalgia. Regarding her prediabetes, there was emphasis on the importance of updating blood work to assess current glycemic status and pursuing insurance options for potential coverage of appropriate weight management medications. For fibromyalgia, I recognized the patient's difficulties with previous medications leading to the use of marijuana-derived gummies, which she reports as effectively managing symptoms at night and improving her sleep. I reassured her about the appropriateness of continuing current measures, given the side effects experienced from prescribed medications in the past. Follow-up was agreed upon to further refine plans once new lab results are available and after clarifying insurance coverage specifics. Patient Instructions - Get blood work done today to check your current diabetic status. - Call your insurance company to find out what weight management medications might be covered. - Continue using your current gummies for nighttime relief as they are working for you. - Follow instructions on any home-test kits you receive like Cologuard. - Schedule a follow-up appointment in three months or sooner if necessary. Orders: Orders UA and rflx microscopic Today E66.01 - Morbid (severe) obesity due to excess calories, M79.7 - Fibromyalgia Complete Blood Count no Diff Today E66.01 - Morbid (severe) obesity due to excess calories, M79.7 - Fibromyalgia Basic Metabolic Panel Today E66.01 - Morbid (severe) obesity due to excess calories, M79.7 - Fibromyalgia Hemoglobin A1c Today E66.01 - Morbid (severe) obesity due to excess calories, M79.7 - Fibromyalgia Lipid Panel Today E66.01 - Morbid (severe) obesity due to excess calories, M79.7 - Fibromyalgia Liver Panel Today E66.01 - Morbid (severe) obesity due to excess calories, M79.7 - Fibromyalgia Thyroid Stimulating Hormone Today E66.01 - Morbid (severe) obesity due to excess calories, M79.7 - Fibromyalgia Referrals Cologuard Test Z12.11 - Encounter for screening for malignant neoplasm of colon
--- OUTSIDE RECORDS SUMMARY | 2024-07-28 14:01 | XMS_ITS | Encounter Summary ---
Author Organization [employer] Address [address] [facility] 7 [place] [address] Care Team Providers Care Specialty Person Name Role Phone Denice Tristan OD Primary Care Provider [phone] Encounter Details Date Type Department Care Team ([facility] Contact Info) Description 07/27/2022 Abstract [facility] ADULT DENTAL [address] [place] [address] Minor Gilliam, DMD [address] [place] [address] Social History Tobacco Use Types Packs/Day Years [...] on filedocumented in this encounter Care Teams Specialty Person Relationship Specialty Start Date End Date Denice Tristan OD [address] [place] [address] PCP - General Optometry 04/29/18 03/05/23 documented as of this encounter
== END 2024-07-28 13:45 | disposition home or self-care (01) ==
LOC: HO.HMCHD 13:02
PROVIDERS: PCP Internal Medicine; Visit Provider Internal Medicine
DX: E66.01 Morbid (severe) obesity due to excess calories (principal); M79.7 Fibromyalgia

== ENCOUNTER → 2024-07-28 13:02 | Outpatient (BNVA) | payer OTHER, SELFPAY | PROVIDERS: PCP Internal Medicine; Visit Provider Internal Medicine ==

== ENCOUNTER 2024-09-22 14:21 | Outpatient (REF) | payer OTHER, SELFPAY ==
[2024-09-22 14:47] LABS: Hematocrit 39.1 % (37.0-47.0); Hemoglobin 12.4 g/dl (12.0-16.0); Mean Corpuscular HGB Conc 31.7 g/dl (31.0-35.0); Mean Corpuscular Hemoglobin 27.0 pg (27.0-33.0); Mean Corpuscular Volume 85.2 fL (80.0-98.0); NRBC Abs Auto 0.000 X10*3/uL (0.0-0.012); NRBC Pct Auto 0.0 /100WBC (0.0-0.2); Platelet Count 275 X10*3/uL (160-400); Red Blood Count 4.59 X10*6/uL (4.20-5.50); White Blood Count 10.1 X10*3/uL (4.8-10.8)
[2024-09-22 14:48] LABS: Appearance Urine Turbid; Glucose Urine UA Negative (Negative); PH 6.5 (5.0-9.0); Specific Gravity - Urine 1.025 (1.005-1.025); UMIC TRIGGER UA YES
[2024-09-22 15:02] LABS: Hemoglobin A1C 119.5288 umol/L; Total Hemoglobin (HGBA1C) 3175.5149 umol/L
--- OUTSIDE RECORDS SUMMARY | 2024-09-22 15:05 | XMS_ITS | Encounter Summary ---
Author Organization [employer] Address [address] [facility] 7 [place] [address] Care Team Providers Care Absorption Operator Name Role Phone Denice Tristan OD Primary Care Provider [phone] Encounter Details Date Type Department Care Team ([facility] Contact Info) Description 07/27/2022 Abstract [facility] ADULT DENTAL [address] [place] [address] Minor Gilliam, DMD [address] [place] [address] Social History Tobacco Use Types Packs/Day Years [...] on filedocumented in this encounter Care Teams Absorption Operator Relationship Specialty Start Date End Date Denice Tristan OD [address] [place] [address] PCP - General Optometry 04/29/18 03/05/23 documented as of this encounter
[2024-09-22 15:34] LABS: Alanine Aminotransferase 14 U/L (0-31); Albumin Level 4.2 g/dL (3.5-5.0); Alkaline Phosphatase 93 U/L (39-117); Anion Gap 11 (12-20); Aspartate Amino Transferase 20 U/L (5-31); Blood Urea Nitrogen 10 mg/dL (9-16); Calcium 8.9 mg/dL (8.4-10.2); Carbon Dioxide 25 mmol/L (22-29); Chloride 108 mmol/L (96-108); Cholesterol 142 mg/dL (<200); Estimated Glomerular Filt Rate > 60; HDL Cholesterol 44 mg/dL (>40); Potassium 4.2 mmol/L (3.3-5.1); Sodium 140 mmol/L (135-145); Total Protein 7.1 g/dL (6.5-8.0); Triglycerides 88 mg/dL (<150)
[2024-09-22 15:35] LABS: Thyroid Stimulating Hormone 1.32 uIU/mL (0.32-4.0)
== END 2024-09-22 14:22 | disposition home or self-care (01) ==
LOC: HO.LAB 14:21
PROVIDERS: PCP Internal Medicine; Visit Provider Internal Medicine
DX: M79.7 Fibromyalgia (principal); E66.01 Morbid (severe) obesity due to excess calories
CPT/HCPCS: 36415; 80048; 80061; 80076; 81001; 83036; 84443; 85027

== ENCOUNTER 2024-12-08 13:40 | Outpatient (REF) | payer OTHER, SELFPAY ==
[2024-12-10 22:33] LABS: TS Negative Control Passed; TS Panel A 1; TS Panel B 1; TS Positive Control Passed; TSpotTB Negative (Negative)
== END 2024-12-08 13:41 | disposition home or self-care (01) ==
LOC: HO.LAB 13:40
PROVIDERS: PCP Internal Medicine; Visit Provider Physician Assistant Medical
DX: Z11.1 Encounter for screening for respiratory tuberculosis (principal); L40.0 Psoriasis vulgaris; M25.50 Pain in unspecified joint
CPT/HCPCS: 36415; 86481

== ENCOUNTER 2024-12-29 11:12 | Outpatient (AMB) | payer OTHER, SELFPAY ==
[2024-12-29 07:55] VITALS: BP 124/76; PULSE 64; TEMP 36.2; O2SAT 96; BMI 47.0
--- NOTE | 2024-12-29 07:55 | A.OFFPC_ITS ---
Vital Signs 12/29/24 07:55 Height 5 ft 2 in Weight 257 lb BMI 47.0 BP 124/76 Blood Pressure Location Lt brachial Position Sitting Pulse 64 Pulse Source Pulse Oximeter Temp 97.1 F Temp Source Temporal Artery Scan Pulse Oximetry (%) 96 Oxygen Delivery Method Room Air Intake Visit Reasons: Annual / Dr Blandon/ Dr [place] [employer] Head Inspector And Adjuster Required: No Accompanied by: Self / Same As Patient Allergies Penicillins Allergy (Intermediate, Verified 12/29/24 07:55) SWELLING Medication List - Last Reconciled 12/29/24 by ARTURO Osuna albuterol sulfate 90 mcg/actuation (Ventolin HFA) 2 puffs inhalation Q4-6H PRN bupropion HCl XL (Wellbutrin XL) 150 mg PO QAM loratadine (Allergy Relief (loratadine)) 10 mg PO DAILY magnesium 250 mg PO BEDTIME meloxicam 15 mg PO DAILY Tobacco use date assessed: 12/29/24 Dental Screening Dental Screen Date: 12/29/24 Did you have a dental visit in the last 12 months?: Yes Did you have a dental problem in the last 6 months where you did not have access to dental care?: No HPI HPI Comments History of Present Illness Details 49 year old female with Fibromyalgia, Pr e DM, AR and Obesity here to establish care and for management of chronic conditions, primarily fibromyalgia. She has a history of fibromyalgia, which began in 2019, characterized by constant, aching muscle pain that she likens to post-exercise soreness. 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 At times, the pain is so severe she can hardly move, and she experiences significant pain in her feet when she first gets out of bed in the morning. Past treatments for fibromyalgia have included various medications with side effects, marijuana gummies, and CBD cream, which provided only temporary relief. She was prescribed gabapentin but did not take it due to fear of drowsiness affecting her job. Cymbalta was effective for her pain but caused unacceptable sexual side effects. A short course of prednisone helped her muscle pain significantly, but she was told it could not be used long-term. Currently, she only uses Tylenol for pain management. The patient also has psoriasis, primarily on her scalp, which was previously treated with Otezla for a couple of years until it lost efficacy. She is currently awaiting insurance approval for Tremfya injections, as prescribed by her [employer] clerk. Her other medical history includes allergies, for which she takes loratadine, and intermittent asthma, managed with an as-needed albuterol inhaler. She reports issues with anxiety, which was previously well-managed with Wellbutrin. She would like to restart this medication. The patient also expresses concern about memory loss, noting she forgets things casually, which is worrying given her mother's history of Alzheimer's disease. She reports not sleeping well. Regarding health maintenance, her Cologuard test over the summer was negative. She has an appointment scheduled for a mammogram. She had labs done in August. Patient needs PE form completed for employer. Patient was informed and verbally consented to the use of an ambient scribe for clinic note documentation during this visit. . [facility] Medical History (Updated 12/29/24 @ 12:19 by ARTURO Osuna) Anxiety Asthma COVID-19 vaccine series completed Dysplasia of cervix, low grade (MULU 1) Fibromyalgia Insomnia Memory change Psoriasis Surgical History Hx of cholecystectomy Family History (Updated 12/29/24 @ 11:32 by Liz Rivers MA) Maternal Grandmother Uterine cancer Mother No problems noted. Father No problems noted. Social History Household Members: Spouse Housing: Apartment Alcohol intake: never Patient Tobacco Use Status: Former Tobacco user e-Cigarette/Vaping Use: Former Use service: No Current occupational status: employed Current occupation: [employer] Sexual orientation: Straight/Heterosexual Gender identity: Female Cognitive needs: No Hearing needs: No Vision needs: Yes (rx glasses) Female Reproductive History Menstrual Age of Menarche: 12 Questionnaire PHQ-9 Over the last 2 weeks, how often have you been bothered by any of the following problems? 1. Little interest or pleasure in doing things: not at all 2. Feeling down, depressed, or hopeless: several days 3. Trouble falling or staying asleep, or sleeping too much: several days 4. Feeling tired or having little energy: nearly every day 5. Poor appetite or overeating: several days 6. Feeling bad about yourself - or that you are a failure or have let yourself or your family down: not at all 7. Trouble concentrating on things, such as reading the newspaper or watching television: not at all 8. Moving or speaking so slowly that other people could have noticed. Or the opposite - being so fidgety or restless that you have been moving around a lot more than usual: not at all 9. Thoughts that you would be better off or of hurting yourself in some way: not at all Total score: 6 Depression Screening Interpretation: Positive Depression Screening Follow-up: Change in Medication and Follow-up Visit Requested Depression Screening Done: Yes 04102 - PHQ-9 Billing: Yes Source: Developed by Drs. Brandon Brewster, Krystal Wilkins, Hood Lyles and colleagues, with an educational sonido from [employer]. Thrive Questionnaire Date Thrive assessed: 12/29/24 I am a: Patient Within the past 12 months, did the food you bought not last and you didn't have the money to get more?: Never true Within the past 12 months, did you worry whether your food would run out before you got money to buy more?: Never true Do you have trouble paying for medicines?: No Do you have trouble getting transportation to medical appointments?: No Do you have trouble paying your heating and electricity bill?: No Do you have trouble taking care of your child, family member or friend?: No Do you have trouble with day-to-day activities such as bathing, preparing meals, shopping, managing finances, etc.?: No Are you currently unemployed and looking for a job?: No Are you interested in more education?: No THRIVE Score: 0 AUDIT C Alcohol Use Questionnaire (AUDIT-C) 1. How often do you have a drink containing alcohol?: Monthly or less 2. How many drinks containing alcohol do you have on a typical day when you are drinking?: 1 or 2 3. How often do you have six or more drinks on one occasion?: Less than monthly Total Score: 2 BLAIR-7 AMB Questionnaire BLAIR-7 Date BLAIR - 7 assessed: 12/29/24 Feeling nervous, anxious, or on edge: 1 = Several days Not being able to stop or control worryin = Not at all Worrying too much about different things: 0 = Not at all Trouble relaxin = Not at all Being so restless that it is hard to sit still: 0 = Not at all Becoming easily annoyed or irritable: 0 = Not at all Feeling afraid as if something awful might happen: 0 = Not at all Total BLAIR-7 score (0-4 normal; 5-9 mild; 10-14 moderate; 15-21 severe): 1 Source: Developed by Drs. Brandon Brewster, Krystal Wilkins, Hood Lyles and colleagues, with an educational sonido from [employer]. BLAIR-7 Assessment Billing BLAIR-7 Assessment Tool: BLAIR-7 Assessment 36230 Review of Systems Narrative CONSTITUTIONAL No Chills No Fever No Weight loss Fatigue No generalized weakness SKIN Psoriasis- followed by Dermatology EYES No change in visual acuity- last eye exam <1 year No eye pain No red eye HEAD AND NECK No dizziness No headache No neck pain EAR/NOSE/MOUTH/THROAT No earache No sinus pain No congestion No hoarseness No sore throat RESPIRATORY No cough No shortness of breath Infrequent wheezing CARDIOVASCULAR No chest pain No dyspnea No palpitations No peripheral edema No Syncope GASTROINTESTINAL No abdominal pain No constipation No diarrhea No heartburn No loss of appetite No nausea No vomiting GENITOURINARY No dysuria No hematuria No urinary frequency No urinary urgency ENDOCRINE No cold intolerance No excessive hunger No excessive thirst No change in hair texture MUSCULOSKELETAL Back pain No joint pain No swelling Myalgias IMMUNOLOGICAL/ALLERGIC No congestion No itchy eyes No itchy nose Intermittent rhinitis No watery eyes HEMATOLOGIC No bleeding tendencies No bruising No fatigue LYMPHATIC No swollen lymph nodes NEUROLOGICAL Memory concerns No paresthesias No focal weakness PSYCHIATRIC Anxiety Depression Sleeping problems No substance abuse No suicidal ideation Physical exam (Primary Care) Vital Signs: Last Vital Signs Temp 97.1 F 12/29/24 07:55 Pulse 64 12/29/24 07:55 BP 124/76 12/29/24 07:55 Pulse Ox 96 12/29/24 07:55 Oxygen Delivery Method Room Air 12/29/24 07:55 BMI result Body Mass Index 47.0 GENERAL Well Developed, Obese, In no acute distress HEENT Head- Normocephalic, atraumatic Eyes- PERRLA, EOMI, Conjuctiva-WNL, Lids-WNL Ears- Canals- Clear, TMs- WNL Nose-Straight, Nares Patent OroPharynx-Mouth WNL, Tongue- no lesions, throat no erythema or exudate Neck- Supple, no lymphadenopathy, thyroid WNL CARDIOVASCULAR Heart- Regular rate and Rhythm without murmur Extremities- No edema RESPIRATORY Normal chest movement, clear to auscultation ABDOMINAL/GI Nondistended, soft, nontender, normal bowel sounds, no masses, no hepatosplenomegaly GENITOURINARY No CVA tenderness BACK Straight, normal ROM, nontender MUSCULOSKELETAL No joint pain, swelling or deformity VASCULAR No JVD, Dorasalis pedis and Posterior Tibialis pulses normal and symmetrical DERMATOLOGY Psoriasis, no significant skin lesions, skin turgor WNL NEUROLOGICAL Cranial Nerves 11-x11 grossly intact, gait WNL, Coordination WNL, Muscle strength normal and Symmetrical, DTR normal and symmetrical, Light touch sensation intact PSYCHIATRIC Mood and affect Depressed/Anxious, Oriented to person, place and time Tobacco/Smoking Status: Tobacco use Status Tobacco use date assessed 12/29/24 12/29/24 07:56 Patient Tobacco Use Status Former Tobacco user 12/29/24 07:56 e-Cigarette/Vaping Use Former Use 12/29/24 07:56 PHQ-9: PHQ-9 Score PHQ-9: Total score 6 12/29/24 11:33 Depression Screening Interpretation: Positive Depression Screening Follow-up: Stephanie paovn in Medication and Follow-up Visit Requested Thrive Assessment: Date of Thrive Assessment Date Thrive assessed 12/29/24 12/29/24 07:56 Results Reviewed Results Reviewed: - Cologuard: Negative (completed in the summer). Coding Level of Care Code Established Pt Est Pt Level 5 (60687) Patient Type Established Diagnoses Fibromyalgia M79.7 Psoriasis L40.9 Anxiety F41.9 Insomnia G47.00 Asthma J45.909 Memory change R41.3 Obesity, morbid, BMI 40.0-49.9 E66.01 Additional Codes BLAIR-7 Assessment Billing - BLAIR-7 Assessment Tool: BLAIR-7 Assessment 43063 ([id number]) PHQ-9 - 78123 - PHQ-9 Billing: Yes ([id number]) Time Spent (min) 40 Comment Time spent on chart review, medication reconciliation, H&P, patient education, orders. Assessment & Plan Assessment & Plan (1) Fibromyalgia: Code(s): M79.7 - Fibromyalgia Category: Medical Plan: The patient's primary complaint is chronic pain from fibromyalgia, which is poorly controlled with Tylenol. Past trials of Cymbalta were effective for pain but caused sexual dysfunction, and she declined gabapentin due to concerns about somnolence. The plan is to await the initiation of Tremfya for her psoriasis, as it may also alleviate her myalgias. In the interim, meloxicam once daily will be started for its anti-inflammatory properties. Lyrica was discussed as a future option if needed, as it is less sedating than gabapentin and does not have the same sexual side effects as Cymbalta. Patient to follow up in 2 months or sooner if symptoms persist or worsen. (2) Psoriasis: Code(s): L40.9 - Psoriasis, unspecified Category: Medical Plan: The patient is followed by a [employer] clerk for her psoriasis. She has a history of Otezla use, which is no longer effective. She is currently awaiting insurance approval to begin Tremfya injections. The plan is to wait and see if Tremfya also improves her fibromyalgia symptoms. (3) Anxiety: Code(s): F41.9 - Anxiety disorder, unspecified Category: Medical Plan: The patient reports anxiety and has previously had success with Wellbutrin. A prescription for Wellbutrin will be sent to her pharmacy. Patient to follow up in 2 months or sooner if symptoms persist or worsen. (4) Insomnia: Code(s): G47.00 - Insomnia, unspecified Category: Medical Plan: She also reports poor sleep, which may be contributing to her memory concerns. I will prescribe magnesium 250-400 mg to be taken at bedtime to aid with sleep and muscle symptoms, advising her it can be purchased [id number] if not covered by insurance. Patient to follow up in 2 months or sooner if symptoms persist or worsen. (5) Asthma: Code(s): J45.909 - Unspecified asthma, uncomplicated Category: Medical Plan: The patient has intermittent asthma and uses an albuterol inhaler as needed. A refill for her albuterol inhaler will be sent to her pharmacy to ensure she has it on hand. (6) Memory change: Code(s): R41.3 - Other amnesia Category: Medical Plan: The patient expressed concern about forgetting things, given her mother's history of Alzheimer's disease. Her symptoms, such as forgetting names, are more consistent with normal age-related memory changes rather than Alzheimer's. Recent blood work is on file, and no new labs will be ordered. (7) Obesity, morbid, BMI 40.0-49.9: Comment: BMI today was 47.0 Code(s): E66.01 - Morbid (severe) obesity due to excess calories Category: Medical Plan: Discussed the health risks of obesity with the patient. Reviewed benefits of even moderate weight loss with the patient. Patient will gradually try and increase exercise to 30-40 min 5-7 times per week. We discussed they may need to break the exercise up into 2-3 sessions daily due to fibromyalgia. We discussed the patient adding more fruits and vegetables to their diet. Will monitor weight and follow up in 6 months. Plan I discussed the management plan for the patient's fibromyalgia, explaining that we will start with meloxicam, a once-daily anti-inflammatory, to help with her pain. I advised that we would wait to see how the Tremfya for her psoriasis works before considering other medications, but that Lyrica could be an option in the future as it is less sedating than gabapentin and does not cause the sexual side effects she experienced with Cymbalta. We addressed her concerns about memory loss, and I reassured her that her symptoms are more typical of normal aging rather than Alzheimer's, noting that poor sleep can also impact memory. I explained that there is currently no reliable blood marker for Alzheimer's. To help with her poor sleep and muscle symptoms, I recommended magnesium 250-400 mg nightly and sent a prescription, also noting it is available over the counter. I agreed to restart Wellbutrin for her anxiety and sent a prescription to her pharmacy, along with refills for her albuterol inhaler. I confirmed that no new lab work is needed at this time and that we would follow up in about 8 weeks to assess her progress. Medications: New albuterol sulfate 90 mcg/actuation (Ventolin HFA) 2 puffs inhalation Q4-6H PRN 8.5 grams 6RF shortness of breath or wheezing bupropion HCl XL (Wellbutrin XL) 150 mg PO QAM 90 tabs 1RF for anxiety magnesium 250 mg PO BEDTIME 90 tabs 1RF for sleep meloxicam with food 15 mg PO DAILY 90 tabs 0RF for fibromyalgia pain Patient Instructions: - Take one meloxicam tablet each day to help with your pain. - Take magnesium (250 mg or 400 mg) about one hour before you go to bed to help you sleep and to help with muscle pain. - If your insurance does not cover the magnesium prescription, you can buy it over the counter. - Restart your Wellbutrin prescription for anxiety as directed. - A prescription for your albuterol inhaler (pump) has been sent to your pharmacy. - Wait to see if the Tremfya injections for your skin also help with your muscle pain before we consider other medications. - Keep your upcoming appointments for your mammogram and osteoporosis screening. - Please make a follow-up appointment at the front end developer to see me again in about 8 weeks.
--- OUTSIDE RECORDS SUMMARY | 2024-12-29 14:14 | XMS_ITS | Encounter Summary ---
Author Organization [employer] Address [address] 7 [place] [address] Care Team Providers Care Weld Inspector Name Role Phone Denice Tristan OD Primary Care Provider [phone] Encounter Details Date Type Department Care Team ([facility] Contact Info) Description 08/22/2022 Abstract [facility] [address] [place] [address] Minor Gilliam, DMD [address] [place] [address] Social History Tobacco Use Types Packs/Day Years [...] on filedocumented in this encounter Care Teams Weld Inspector Relationship Specialty Start Date End Date Denice Tristan OD [address] [place] [id number] PCP - General Optometry 04/29/18 03/05/23 documented as of this encounter
--- OUTSIDE RECORDS SUMMARY | 2024-12-29 14:14 | XMS_ITS | Clinical Summary ---
Author Organization [employer] Address [address] [place] [address] 7 [place] [address] Care Team Providers Care Vending Manager Name Role Phone Unavailable Primary Care [...] Panel 1974 SDOH Screening 1974 Sigmoidoscopy 1974 Disability Screening 1974 Alcohol/Substance Use Screening 1986 Family Planning [...] 04/11/2023, 0 08/01/2022, 05/31/2020, Additional history exists Tobacco Screening 05/20/2024 05/21/2023 COVID-19 Vaccine ( - season) 2024 Influenza Vaccine (#1) 2024 Pneumococcal Vaccine: 50+ Years (1 of 1 - PCV) 2024 Zoster Vaccines (1 of 2) 2024 DTaP/Tdap/Td [...] patient's age to complete this topic Meningococcal B Vaccine Aged Out No l onger eligible based on patient's age to complete [...] Relevant to Health Maintenance Insurance DENTAL - [place] [address] [place] [id number]
--- OUTSIDE RECORDS SUMMARY | 2024-12-29 14:14 | XMS_ITS | Encounter Summary ---
Author Organization [employer] Address [address] [facility] 7 [place] [address] Care Team Providers Care Automobile Upholsterer Name Role Phone Denice Tristan OD Primary Care Provider [phone] Encounter Details Date Type Department Care Team ([facility] Contact Info) Description 07/27/2022 Abstract [facility] [address] [place] [address] Minor Gilliam, DMD [address] [place] [address] Social History Tobacco Use Types Packs/Day Years [...] on filedocumented in this encounter Care Teams Automobile Upholsterer Relationship Specialty Start Date End Date Denice Tristan OD [address] [place] [id number] PCP - General Optometry 04/29/18 03/05/23 documented as of this encounter
--- OUTSIDE RECORDS SUMMARY | 2024-12-29 14:14 | XMS_ITS | Encounter Summary ---
Author Organization [employer] Address [address] [place] [address] 7 [place] [address] Care Team Providers Care Lease Operator Name Role Phone Denice Tristan OD Primary Care Provider [phone] Encounter Details Date Type Department Care Team [...] on filedocumented in this encounter Care Teams Lease Operator Relationship Specialty Start Date End Date Denice Tristan OD [address] [place] [id number] PCP - General Optometry 04/29/18 03/05/23 documented as of this encounter
== END 2024-12-29 12:07 | disposition home or self-care (01) ==
LOC: HO.HMCHD 11:12
PROVIDERS: PCP Internal Medicine; Visit Provider Physician Assistant Medical
DX: M79.7 Fibromyalgia (principal); L40.9 Psoriasis, unspecified; F41.9 Anxiety disorder, unspecified; G47.00 Insomnia, unspecified; J45.909 Unspecified asthma, uncomplicated; R41.3 Other amnesia; E66.01 Morbid (severe) obesity due to excess calories

== ENCOUNTER → 2024-12-29 11:12 | Outpatient (BNVA) | payer OTHER, SELFPAY | PROVIDERS: PCP Internal Medicine; Visit Provider Physician Assistant Medical | DX: Z76.89 Persons encountering health services in other specified circumstances (principal); M79.7 Fibromyalgia; L40.9 Psoriasis, unspecified; F41.9 Anxiety disorder, unspecified; G47.00 Insomnia, unspecified; J45.20 Mild intermittent asthma, uncomplicated; R41.3 Other amnesia; E66.01 Morbid (severe) obesity due to excess calories; Z68.42 Body mass index [BMI] 45.0-49.9, adult; Z13.31 Encounter for screening for depression; Z13.39 Encounter for screening examination for other mental health and behavioral disorders | CPT/HCPCS: 96127 ==

== ENCOUNTER 2025-02-09 01:25 | Emergency (ER) | payer OTHER, SELFPAY ==
--- NOTE | ~2025-02-09 | XR_ITS ---
CLINICAL HISTORY: SOB 1 view chest x-ray Comparison: None provided Findings: The lungs are clear. Normal size heart. No acute fracture. Cholecystectomy clips. IMPRESSION: 1. No acute findings. This document has been electronically signed by: Jack Yap MD on 02/09/2025 02:26:42
[2025-02-09 01:28] VITALS: BP 122/81; PULSE 93; RESP 20; TEMP 37; O2SAT 96; BMI 38.9
[2025-02-09 03:20] LABS: Hematocrit 45.6 % (37.0-47.0); Hemoglobin 14.9 g/dl (12.0-16.0); Imm Gran Abs Auto 0.02 X10*3/uL (0.00-0.03); Imm Gran Pct Auto 0.4 % (0.0-0.4); Lymphocytes Absolute Auto 1.4 X10*3/uL (1.2-4.9); Mean Corpuscular HGB Conc 32.7 g/dl (31.0-35.0); Mean Corpuscular Hemoglobin 27.9 pg (27.0-33.0); Mean Corpuscular Volume 85.2 fL (80.0-98.0); NRBC Abs Auto 0.000 X10*3/uL (0.0-0.012); NRBC Pct Auto 0.0 /100WBC (0.0-0.2); Platelet Count 253 X10*3/uL (160-400); Red Blood Count 5.35 X10*6/uL (4.20-5.50); White Blood Count 5.1 X10*3/uL (4.8-10.8)
[2025-02-09 03:21] LABS: MANUAL DIFF FLAG NO
[2025-02-09 03:36] LABS: Alanine Aminotransferase 33 U/L (0-31); Albumin Level 4.5 g/dL (3.5-5.0); Alkaline Phosphatase 94 U/L (39-117); Anion Gap 13 (12-20); Aspartate Amino Transferase 34 U/L (5-31); Blood Urea Nitrogen 10 mg/dL (9-16); Calcium 9.5 mg/dL (8.4-10.2); Carbon Dioxide 22 mmol/L (22-29); Chloride 105 mmol/L (96-108); Creatinine Clr Calc Pharmacy 96.8; Estimated Glomerular Filt Rate > 60; Lipase 112 U/L (8-78); Potassium 4.2 mmol/L (3.3-5.1); Sodium 136 mmol/L (135-145); Total Protein 8.0 g/dL (6.5-8.0)
[2025-02-09 03:46] LABS: COVID-19 Test Negative (Negative); IDNOW Serial# 152EDE1D; IDNOW Serial# 16C4AD1C; Influenza B2 Negative (Negative)
--- NOTE | 2025-02-09 04:16 | ED_ITS ---
HPI - General Adult General Chief complaint: Nausea/Vomiting/Diarrhea Stated complaint: stomach/abd pain, n/v/d Time Seen by Provider: 02/09/25 03:58 Source: patient Limitations: no limitations History of Present Illness ED Provider: Eliana Yu PA-C HPI narrative: 49-year-old female with a history of asthma, anxiety, fibromyalgia, morbid obesity, who presents with viral syndrome x4 days. Associated upper abdominal discomfort, nausea vomiting diarrhea, poor oral intake, headache, generalized malaise with myalgias, nasal congestion and cough. The cough is dry repetitive, spasm like. She denies active wheezing. Denies fever. Designs known sick contacts with same symptoms. Related Data Home Medications ?Medication ?Instructions ?Recorded ?Confirmed loratadine 10 mg tablet (Allergy 10 mg PO DAILY 12/29/24 Relief (loratadine)) Previous Rx's ?Medication ?Instructions ?Recorded albuterol sulfate 90 mcg/actuation 2 puff inhalation Q 4-6H PRN 12/29/24 aerosol inhaler (Ventolin HFA) shortness of breath or wheezing #8.5 grams bupropion HCl 150 mg 24 hr tablet, 150 mg PO QAM for a nxiety #90 tabs 12/29/24 extended release (Wellbutrin XL) magnesium 250 mg tablet 250 mg PO BEDTIME for sleep #90 12/29/24 tabs meloxicam 15 mg tablet 15 mg PO DAILY for fibromyal ryan 12/29/24 pain #90 tabs dicyclomine 20 mg tablet 20 mg PO TID PRN abdominal p ain 02/09/25 #10 tabs ondansetron 4 mg disintegrating 4 mg PO Q8H PRN nausea and 02/09/25 tablet vomiting #10 tabs prednisone 20 mg tablet 40 mg (2 x 20 mg) PO DAILY # 8 tabs 02/09/25 Allergies Allergy/AdvReac Type Severity Reaction Status Date / Time Penicillins Allergy Intermediate SWELLING Verified 02/09/25 01:30 [facility] Past Medical History Attestation statement: The following information was validated with the patient. Medical History (Updated 02/09/25 @ 04:26 by ARTURO Casas) Memory change Asthma Insomnia Anxiety Psoriasis Fibromyalgia COVID-19 vaccine series completed Dysplasia of cervix, low grade (MULU 1) Surgical History Hx of cholecystectomy Family History Family History (Updated 12/29/24 @ 11:32 by Liz Rivers MA) Maternal Grandmother Uterine cancer Mother No problems noted. Father No problems noted. Social History Social History Household Members: Spouse Housing: Apartment Alcohol intake: never Patient Tobacco Use Status: Former Tobacco user e-Cigarette/Vaping Use: Former Use Advance Directives: No Advance Directives Information Provided: No Do you have a plan to hurt others: No Plan service: No Current occupational status: employed Current occupation: [employer] Sexual orientation: Straight/Heterosexual Gender identity: Female Cognitive needs: No Hearing needs: No Vision needs: Yes (rx glasses) Physical Exam ED Vital Signs: Vital Signs - 24 hr 02/09/25 01:28 Temperature 98.6 F Pulse Rate 93 Respiratory Rate 20 Blood Pressure 122/81 Pulse Oximetry 96 Oxygen Delivery Method Room Air BMI result Body Mass Index 38.9 Medical Decision Making Medical Decision Making MDM Narrative: 49-year-old female with a history of asthma, anxiety, fibromyalgia, morbid obesity, who presents with viral syndrome x4 days. Associated upper abdominal discomfort, nausea vomiting diarrhea, poor oral intake, headache, generalized malaise with myalgias, nasal congestion and cough. The cough is dry repetitive, spasm like. She denies active wheezing. Denies fever. Denies known sick contacts with same symptoms. Denies travel use of antibiotics or hospitalization. Problem: Asthma History: Per patient I have considered the following differential diagnoses: Viral syndrome, viral gastroenteritis, bronchitis, pneumonia, asthma exacerbation, C diff, traveler's diarrhea Plan: Screening labs and viral panel with chest x-ray obtained from triage, she is positive for influenza a, which accounts for her symptoms. She has no risk factors for C diff or traveler's diarrhea. Chest x-ray does not reveal pneumonia, she has a bronchospasm type cough, we will treat accordingly. I have independently reviewed the following tests: Labs: No leukocytosis, not anemic, no electrolyte abnormality noted, positive for influenza A Chest x-ray:Findings: The lungs are clear. Normal size heart. No acute fracture. Cholecystectomy clips. IMPRESSION: 1. No acute findings. Differential Diagnosis Differential Diagnoses: The differential diagnosis associated with the presentation includes See MDM Admission/Observation Consideration of admission/observation: Escalation of care including admission/observation considered Not applicable Lab Data MDM Lab Attestation statement: I reviewed the patient's lab results. 02/09/25 03:15 02/09/25 03:14 Labs: Lab Results 02/09/25 02/09/25 02/09/25 Range/Units 03:11 03:14 03:15 WBC 5.1 (4.8-10.8) X10*3/uL RBC 5.35 (4.20-5.50) X10*6/uL Hgb 14.9 D (12.0-16.0) g/dl Hct 45.6 (37.0-47.0) % MCV 85.2 (80.0-98.0) fL MCH 27.9 (27.0-33.0) pg MCHC 32.7 (31.0-35.0) g/dl RDW 13.3 (11.0-16.0) % Plt Count 253 (160-400) X10*3/uL MPV 10.5 (9.4-12.3) fL Immature Gran % (Auto) 0.4 (0.0-0.4) % Neut % (Auto) 59.0 (45-73) % Lymph % (Auto) 28.5 (20-40) % Monroe % (Auto) 11.3 H (2-11) % Eos % (Auto) 0.4 (0-4) % Baso % (Auto) 0.4 (0-2) % Lymph # (Auto) 1.4 (1.2-4.9) X10*3/uL Monroe # (Auto) 0.6 (0.1-1.2) X10*3/uL Eos # (Auto) 0.0 (0.0-0.4) X10*3/uL Baso # (Auto) 0.0 (0.0-0.2) X10*3/uL Abs Immat Gran (auto) 0.02 (0.00-0.03) X10*3/uL Absolute Neuts (auto) 3.0 (2.0-8.3) x10*3/uL Absolute Nucleated RBC 0.000 (0.0-0.012) X10*3/uL Nucleated RBC % (auto) 0.0 (0.0-0.2) /100WBC Sodium 136 (135-145) mmol/L Potassium 4.2 (3.3-5.1) mmol/L Chloride 105 (96-108) mmol/L Carbon Dioxide 22 (22-29) mmol/L Anion Gap 13 (12-20) BUN 10 (9-16) mg/dL Creatinine 0.87 (0.5-1.4) mg/dL Estim Creat Clear Calc 96.8 Estimated GFR > 60 Random Glucose 108 (60-115) mg/dL Calcium 9.5 D (8.4-10.2) mg/dL Total Bilirubin 0.2 (0.0-1.0) mg/dL AST 34 H (5-31) U/L ALT 33 H (0-31) U/L Alkaline Phosphatase 94 (39-117) U/L Total Protein 8.0 (6.5-8.0) g/dL Albumin 4.5 (3.5-5.0) g/dL Lipase 112 H (8-78) U/L COVID-19 (INGRID) Negative (Negative) COVID-19 Clin Com See Note Influenza Type A (COLLETTE) Positive A (Negative) Influenza Type B (COLLETTE) Negative (Negative) Influenza A & B Note See Note Radiology Impression Discussion of test interpretation with radiology: I have reviewed the radiologist's reading. Discharge Plan Discharge Clinical Impression: Influenza A, Bronchospasm Patient Disposition: Home, Self-Care Instructions: Influenza (ED), Bronchospasm (ED) Additional Instructions: You were found to be positive for influenza, see home care instructions. The remainder of your labs were normal. The chest x-ray is negative for pneumonia, however you do have a bronchospasm type cough, that we will treat. Use your inhalers as needed, take the steroid as directed. Uses Zofran as needed for nausea, use the dicyclomine as needed for abdominal upset and diarrhea. Follow up with your primary care provider as needed. Prescriptions: New prednisone 20 mg tablet 40 mg PO DAILY Qty: 8 0RF ondansetron 4 mg tablet,disintegrating 4 mg PO Q8H PRN (Reason: nausea and vomiting) Qty: 10 0RF dicyclomine 20 mg tablet 20 mg PO TID PRN (Reason: abdominal pain) Qty: 10 0RF No Action loratadine [Allergy Relief (loratadine)] 10 mg tablet 10 mg PO DAILY meloxicam 15 mg tablet 15 mg PO DAILY Qty: 90 0RF Rx Instructions: with food magnesium 250 mg tablet 250 mg PO BEDTIME Qty: 90 1RF albuterol sulfate [Ventolin HFA] 90 mcg/actuation HFA aerosol inhaler 2 puff inhalation Q4-6H PRN (Reason: shortness of breath or wheezing) Qty: 8.5 6RF bupropion HCl [Wellbutrin XL] 150 mg tablet extended release 24 hr 150 mg PO QAM Qty: 90 1RF Stand Alone Forms: Work/School Release Print Language: Maori
--- OUTSIDE RECORDS SUMMARY | 2025-02-09 04:17 | XMS_ITS | Encounter Summary ---
Author Organization [employer] Address [address] [place] [address] [address] [place] [address] Care Team Providers Care It Help Desk Analyst Name Role Phone Denice Tristan OD Primary Care Provider [phone] Encounter Details Date Type Department Care Team [...] on filedocumented in this encounter Care Teams It Help Desk Analyst Relationship Specialty Start Date End Date Denice Tristan OD [address] [place] [id number] PCP - General Optometry 04/29/18 03/05/23 documented as of this encounter
--- OUTSIDE RECORDS SUMMARY | 2025-02-09 04:17 | XMS_ITS | Clinical Summary ---
Author Organization [employer] Address [address] [place] [address] [address] [place] [address] Care Team Providers Care Meteorologist In Charge Name Role Phone Unavailable Primary Care Provider [...] exists Tobacco Screening 05/20/2024 05/21/2023 COVID-19 Vaccine (1 - 2024- season) 2024 Influenza Vaccine (#1) 2024 Pneumococcal [...] Health Maintenance Insurance DENTAL - [employer] [address] [place] [id number]
--- OUTSIDE RECORDS SUMMARY | 2025-02-09 04:17 | XMS_ITS | Encounter Summary ---
Author Organization [employer] Address [address] [facility] [address] [place] [address] Care Team Providers Care Cone Baker Machine Name Role Phone Denice Tristan OD Primary Care Provider [phone] Encounter Details Date Type Department Care Team ([facility] Contact Info) Description 07/27/2022 Abstract [facility] D[facility]AL [address] [place] [address] Minor Gilliam, DMD [address] [place] [address] Social History Tobacco Use Types Packs/Day Years [...] on filedocumented in this encounter Care Teams Cone Baker Machine Relationship Specialty Start Date End Date Denice Tristan OD [address] [place] [id number] PCP - General Optometry 04/29/18 03/05/23 documented as of this encounter
--- OUTSIDE RECORDS SUMMARY | 2025-02-09 04:17 | XMS_ITS | Encounter Summary ---
Author Organization [employer] Address [address] [facility] [address] [place] [address] Care Team Providers Care Presser Hand Name Role Phone Denice Tristan OD Primary Care Provider [phone] Encounter Details Date Type Department Care Team ([facility] Contact Info) Description 08/22/2022 Abstract [facility] [address] [place] [address] Minor Gilliam, DMD [address] [place] [address] Social History Tobacco Use Types Packs/Day Years [...] on filedocumented in this encounter Care Teams Presser Hand Relationship Specialty Start Date End Date Denice Tristan OD [address] [place] [id number] PCP - General Optometry 04/29/18 03/05/23 documented as of this encounter
[2025-02-09 04:50] VITALS: BP 136/73; PULSE 88; RESP 18; TEMP 36.4; O2SAT 97
[2025-02-09 04:53] VITALS: BP 136/73; PULSE 88; RESP 18; TEMP 36.4; O2SAT 97
== END 2025-02-09 04:54 | disposition home or self-care (01) ==
PROVIDERS: Emergency Provider Emergency Medicine
DX: J10.1 Influenza due to other identified influenza virus with other respiratory manifestations (principal); J98.01 Acute bronchospasm; R11.2 Nausea with vomiting, unspecified; R06.02 Shortness of breath; Z03.818 Encounter for observation for suspected exposure to other biological agents ruled out; R10.9 Unspecified abdominal pain
CPT/HCPCS: 36415; 71045; 80053; 83690; 85025; 87502; 87635; 99283; 99284

== ENCOUNTER → 2025-02-09 01:58 | Outpatient (BNV) | payer OTHER, SELFPAY | PROVIDERS: Visit Provider Student in an Organized Health Care Education/Training Program | DX: R06.02 Shortness of breath (principal) | CPT/HCPCS: 71045 ==